=== PATIENT | female | born 1975 | race Caucasian/White ===

== ENCOUNTER 2016-07-24 19:45 | Emergency (ER) | payer SELFPAY ==
[~2016-07-24] VITALS: Ht 149.9 cm; Wt 63.5 kg
[~2016-07-24 19:45] MED LIST: ACET-704 PO; PENI500T PO
[2016-07-24 21:02] VITALS: BP 207/101
[2016-07-24] MEDS ORDERED: IBUPROFEN 800 MG TABLET. PO ONE (22:30)
[2016-07-24] MEDS ORDERED: HYDROCODONE/APAP 5/325MG TABLET. PO ONE (22:30)
[2016-07-24] MEDS ORDERED: IPRATRPIUM/ALBUTEROL 0.5/2.5MG 3 ML NEBU. NEB ONE (22:30)
[2016-07-24] MEDS ORDERED: AMOXICILLIN/K CLAV 875/125MG TABLET. PO ONE (22:30)
[2016-07-24] MEDS ORDERED: PREDNISONE 20 MG TABLET PO ONE (22:30)
[2016-07-24] MEDS ORDERED: PROAIR HFA8.5 GM INH (23:55)
[2016-07-24] MEDS ORDERED: HYDR-971 PO (23:55)
[2016-07-24] MEDS ORDERED: AMOX1TAB61 PO (23:55)
[2016-07-24] MEDS ORDERED: PRED50TA PO (23:55)
--- NOTE | 2016-07-24 23:56 | PHYS DOC ---
Past Medical History Past Medical History: No Pertinent History Additional Past Medical Histor: chronic back pain from fracture, chronic dental issues Past Surgical History: No Surgical History Alcohol Use: Occasionally Drug Use: None Adult General Chief Complaint Chief Complaint: DENTAL PROBLEM HPI HPI Patient is a 41 year old female who presents with cough and toothache. Patient reports over the past 1-2 weeks she has had a productive cough that is getting worse. This is accompanied by nausea, but no vomiting. She also reports she has developed a scratchy throat. No fever. In addition, patient reports she is having worsening of her chronic dental pain. This is in her lower molars on either side; she has had problems with these teeth for 1-2 years. She has not been able to see a dentist as of yet. Has been on antibiotics, most recently penicillin a couple months ago for dental infection. Review of Systems Review of Systems Constitutional: Denies fever or chills Eyes: Denies change in visual acuity or eye pain HENT: Dental pain, scratchy throat. Respiratory: Productive cough. Denies shortness of breath Cardiovascular: Denies chest pain GI: Denies abdominal pain, nausea, vomiting, bloody stools or diarrhea : Denies dysuria or hematuria Musculoskeletal: Denies back pain or joint pain Integument: Denies rash or skin lesions Neurologic: Denies headache, focal weakness or sensory changes Current Medications Current Medications Current Medications Medications (Trade) Dose Ordered Sig/Vivien Start Time Stop Time Status Last Admin Dose Admin Acetaminophen/ Hydrocodone Bitart (Lortab 5/325) 2 tab 1X ONCE 07/24/16 22:30 07/24/16 22:31 DC 07/24/16 22:20 2 TAB Albuterol/ Ipratropium (Duoneb) 3 ml 1X ONCE 07/24/16 22:30 07/24/16 22:31 DC 07/24/16 22:28 3 ML Amoxicillin/ Clavulanate Potassium (Augmentin 875/ 125mg) 1 tab 1X ONCE 07/24/16 22:30 07/24/16 22:31 DC 07/24/16 22:21 1 TAB Ibuprofen (Motrin) 800 mg 1X ONCE 07/24/16 22:30 07/24/16 22:31 DC 07/24/16 22:21 800 MG Prednisone (Prednisone) 60 mg 1X ONCE 07/24/16 22:30 07/24/16 22:31 DC 07/24/16 22:21 60 MG Allergies Allergies Allergies Coded Allergies Type Severity Reaction Last Updated Verified tramadol Allergy 03/29/13 Yes Physical Exam Physical Exam Constitutional: Well developed, well nourished, no acute distress, non-toxic appearance HENT: Normocephalic, atraumatic, bilateral external ears normal. Poor dentition throughout; multiple tooth fractures, including affected molars; no abscess appreciated; oropharynx clear without erythema or exudate Eyes: EOMI, conjunctiva normal, no discharge Neck: Normal range of motion, no stridor Cardiovascular: Heart rate normal, regular rhythm, no murmur Lungs & Thorax: Diffuse expiratory wheezing Abdomen: Bowel sounds normal, soft, non-distended, no TTP Skin: Warm, dry, no erythema, no rash Extremities: No obvious deformity, no edema Neurologic: Alert and oriented X 3, no gross deficits noted Psychologic: Affect normal, judgement normal, mood normal Current Patient Data Vital Signs Vital Signs Date Time Temp Pulse Resp B/P Pulse Ox O2 Delivery O2 Flow Rate FiO2 07/24/16 22:20 Room Air 07/24/16 21:02 98.6 101 20 207/101 98 98.6 Lab Values Laboratory Tests Test 07/24/16 20:46 POC Urine HCG, Qualitative Hcg negative (Negative) EKG EKG [] Radiology/Procedures Radiology/Procedures CXR: IMPRESSION: No acute cardiopulmonary abnormality is detected. Course & Med Decision Making Course & Med Decision Making Pertinent Labs and Imaging studies reviewed. (See chart for details) Patient is 41-year-old female who presents with productive cough and dental pain. No dental abscess noted, will dose with augmentin to cover for odontogenic infection. Wheezing noted on lung auscultation; suspect viral URI with subsequent RAD. CXR ordered. Oral pain meds, dose of steroids, breathing treatments ordered. CXR results as above. Wheezing and symptoms greatly improved after breathing treatment. Discussed importance of follow up with dentistry and PCP. Discharged with rx for pain meds, abx, steroids, albuterol MDI. Given instructions for follow up and return precautions. Dragon Disclaimer Dragon Disclaimer This electronic medical record was generated, in whole or in part, using a voice recognition dictation system. Departure Departure Impression: Primary Impression: Dentalgia Additional Impressions: URI (upper respiratory infection) RAD (reactive airway disease) Disposition: 01 HOME, SELF-CARE Condition: IMPROVED Referrals: NO PCP (PCP) Patient Instructions: Bronchospasm, Adult, Dental Pain, Upper Respiratory Infection, Adult Additional Instructions: Thank you for allowing us to provide care today in the Emergency Department. Take the provided medication as directed. Use caution when taking the pain medication as it can make you drowsy. Schedule a follow up appointment with a primary care doctor using the provided list. Also follow up with a dentist as we discussed. Return promptly to the Emergency Department if you develop any new or concerning symptoms. Scripts Amoxicillin/Potassium Clav (Augmentin 875-125 Tablet)1 Each Tablet1 Tab PO BID # 14 TAB Prov:NAHID LEE MD 07/24/16 Prednisone 50 Mg Tablet1 Tab PO DAILY #4 TAB start taking 07/25/16 Prov:NAHID LEE MD 07/24/16 Albuterol Sulfate (Proair Hfa Inhaler)8.5 Gm [id number].ad1 Puff INH PRN Q6HRS PRN SHORTNESS OF BREATH #1 INHALER Ref 1 Prov:NAHID LEE MD 07/24/16 Hydrocodone/Apap 5-325 ([place]unk 5-325 Tablet)1 Each Tablet1 Tab PO PRN Q6HRS PRN PAIN #20 TAB Prov:NAHID LEE MD 07/24/16 Problem Qualifiers NAHID LEE MD Jul 24, 2016 23:56
--- NOTE | 2016-07-25 07:53 | RAD ---
Chest, 2 views, 07/24/2016: History: Productive cough, wheezing The heart size and pulmonary vascularity are normal. No pulmonary infiltrates are seen. There is no evidence of pleural fluid. Mild spurring is present in the spine. IMPRESSION: No acute cardiopulmonary abnormality is detected.
== END 2016-07-25 00:12 | disposition home or self-care (01) ==
LOC: ER 19:45
DX: J45.909 Unspecified asthma, uncomplicated (principal); J06.9 Acute upper respiratory infection, unspecified; G89.29 Other chronic pain; Z88.6 Allergy status to analgesic agent
CPT/HCPCS: 71020; 84703; 94250; 94640; 99284; J7512; J7620; 81025

== ENCOUNTER 2016-08-18 10:39 | Emergency (ER) | payer SELFPAY ==
[~2016-08-18] VITALS: Ht 149.9 cm; Wt 63.5 kg
[~2016-08-18 10:39] MED LIST changes: +AMOX1TAB61 PO; +HYDR-971 PO; +PRED50TA PO; +PROAIR HFA8.5 GM INH
[2016-08-18 10:53] VITALS: BP 175/85
[2016-08-18] MEDS ORDERED: HYDR-971 PO (11:09)
[2016-08-18] MEDS ORDERED: CLIN-44 PO (11:09)
--- NOTE | 2016-08-18 11:09 | PHYS DOC ---
Past Medical History Past Medical History: Hypertension, Other Additional Past Medical Histor: chronic back pain from fracture, chronic dental issues Past Surgical History: No Surgical History Alcohol Use: Occasionally Drug Use: None Adult General Chief Complaint Chief Complaint: DENTAL PROBLEM HPI HPI Patient is a 41 year old female with history of hypertension who presents today with bilateral lower gum moderate dental pain that began yesterday. Patient denies any fever or trismus. She states she recently completed Augmentin for an upper respiratory infection. Review of Systems Review of Systems Constitutional: Denies fever or chills [] Eyes: Denies change in visual acuity, redness, or eye pain [] HENT: Dental pain Musculoskeletal: Denies back pain or joint pain [] Integument: Denies rash or skin lesions [] Neurologic: Denies headache, focal weakness or sensory changes [] Endocrine: Denies polyuria or polydipsia [] Allergies Allergies Allergies Coded Allergies Type Severity Reaction Last Updated Verified tramadol Allergy 03/29/13 Yes Physical Exam Physical Exam Constitutional: Well developed, well nourished, no acute distress, non-toxic appearance. [] HENT: Normocephalic, atraumatic, bilateral external ears normal, oropharynx moist, no oral exudates, nose normal. [] approx teeth #16 and 30 are decayed. There is a tiny dental abscess on the gum over tooth #30. This no fluctuance to the abscess. Scattered dental caries throughout her teeth in different stages. Eyes: PERRLA, EOMI, conjunctiva normal, no discharge. [] Skin: Warm, dry, no erythema, no rash. [] Back: No tenderness, no CVA tenderness. [] Extremities: No tenderness, no cyanosis, no clubbing, ROM intact, no edema. [] Neurologic: Alert and oriented X 3, normal motor function, normal sensory function, no focal deficits noted. [] Psychologic: Affect normal, judgement normal, mood normal. [] Current Patient Data Vital Signs Vital Signs Date Time Temp Pulse Resp B/P (MAP) Pulse Ox O2 Delivery O2 Flow Rate FiO2 08/18/16 10:53 98.0 101 20 95 Room Air 98.0 EKG EKG [] Radiology/Procedures Radiology/Procedures [] Course & Med Decision Making Course & Med Decision Making Pertinent Labs and Imaging studies reviewed. (See chart for details) Patient is in the ED with a dental abscess that is not ready to be drained as well as infected dental caries. Discharged with clindamycin. She is allergic to Ultram. She was given a prescription for hydrocodone 12 tablets and encouraged to follow-up with a dentist. She was provided return precautions and discharged in stable condition Donna Disclaimer Donna Disclaimer This electronic medical record was generated, in whole or in part, using a voice recognition dictation system. Departure Departure Impression: Primary Impression: Dentalgia Additional Impressions: Dental abscess Infected dental caries Disposition: HOME, SELF-CARE Condition: STABLE Referrals: NO PCP (PCP) Follow-up with the dentist as soon as possible Patient Instructions: Dental Abscess, Dental Caries Additional Instructions: You were seen for dental abscess. We highly recommend you follow-up with the dentist. Take the prescribed medicines as ordered. Ensure you complete your antibiotics. Scripts Clindamycin Hcl (CLINDAMYCIN HCL) 150 Mg Capsule 3 CAP PO TID, #90 CAP Prov: IVET ROSAS APRN 08/18/16 Hydrocodone/Apap 5-325 (NORCO 5-325 TABLET) 1 Each Tablet 1-2 TAB PO Q4-6HRS, #12 TAB Prov: IVET ROSAS APRN 08/18/16 Problem Qualifiers IVET ROSAS APRN August 18, 2016 11:09
== END 2016-08-18 11:17 | disposition home or self-care (01) ==
LOC: ER 10:39
DX: K04.7 Periapical abscess without sinus (principal); K02.9 Dental caries, unspecified; I10 Essential (primary) hypertension; G89.29 Other chronic pain; Z88.6 Allergy status to analgesic agent
CPT/HCPCS: 99283

== ENCOUNTER 2016-11-09 10:44 | Emergency (ER) | payer SELFPAY ==
[~2016-11-09] VITALS: Ht 149.9 cm; Wt 77.1 kg
[~2016-11-09 10:44] MED LIST changes: +CLIN150C14 PO
[2016-11-09 10:55] VITALS: BP 136/73
[2016-11-09] MEDS ORDERED: ONDA4TAB10 SL (11:11)
[2016-11-09] MEDS ORDERED: HYDR-971 PO (11:11)
--- NOTE | 2016-11-09 11:11 | PHYS DOC ---
Past Medical History Past Medical History: Hypertension, Seizure, Other Additional Past Medical Histor: chronic back pain from fracture, chronic dental issues Past Surgical History: No Surgical History Alcohol Use: Occasionally Drug Use: None Adult General Chief Complaint Chief Complaint: DENTAL PROBLEM HPI HPI Patient is a 41 year old female presents emergency department stating that she has been #31 tooth pulled yesterday at [facility] referral from [place]. Patient states that she has vomited twice yesterday she was not provided with any pain medication she did try to take Aleve with no relief. Patient states she was told she had an infection in the area although was not provided any type of antibiotics. Patient denies any fever, chills. She does state that she' s been nauseated. Review of Systems Review of Systems Constitutional: Denies fever or chills [] Eyes: Denies change in visual acuity, redness, or eye pain [] HENT: Denies nasal congestion or sore throat. Dental pain after extraction of tooth Respiratory: Denies cough or shortness of breath [] Cardiovascular: No additional information not addressed in HPI [] GI: Denies abdominal pain, nausea, vomiting, bloody stools or diarrhea [] : Denies dysuria or hematuria [] Musculoskeletal: Denies back pain or joint pain [] Integument: Denies rash or skin lesions [] Neurologic: Denies headache, focal weakness or sensory changes [] Endocrine: Denies polyuria or polydipsia [] Current Medications Current Medications Current Medications Medications (Trade) Dose Ordered Sig/Vivien Start Time Stop Time Status Last Admin Dose Admin Acetaminophen/ Hydrocodone Bitart (Lortab 5/325) 1 tab 1X ONCE 11/09/16 11:15 11/09/16 11:16 UNV Ondansetron HCl (Zofran Odt) 4 mg 1X ONCE 11/09/16 11:15 11/09/16 11:16 UNV Allergies Allergies Allergies Coded Allergies Type Severity Reaction Last Updated Verified tramadol Allergy 03/29/13 Yes Physical Exam Physical Exam Constitutional: Well developed, well nourished, no acute distress, non-toxic appearance. [] HENT: Normocephalic, atraumatic, bilateral external ears normal, oropharynx moist, no oral exudates, nose normal. Bilateral tympanic membranes appear to be normal. Throat with no exudate no erythematous noted. Patient with the #31 tooth that appears to been extracted with no bleeding or discharge noted from the area. Eyes: PERRLA, EOMI, conjunctiva normal, no discharge. [] Neck: Normal range of motion, no tenderness, supple, no stridor. [] Cardiovascular:Heart rate regular rhythm, no murmur [] Lungs & Thorax: Bilateral breath sounds clear to auscultation [] Skin: Warm, dry, no erythema, no rash. [] Back: No tenderness Extremities: No tenderness, no cyanosis, no clubbing, ROM intact, no edema. [] Neurologic: Alert and oriented X 3, normal motor function, normal sensory function, no focal deficits noted. [] Psychologic: Affect normal, judgement normal, mood normal. [] Current Patient Data Vital Signs Vital Signs Date Time Temp Pulse Resp B/P (MAP) Pulse Ox O2 Delivery O2 Flow Rate FiO2 11/09/16 10:55 98.0 90 18 96 Room Air 98.0 EKG EKG [] Radiology/Procedures Radiology/Procedures [] Course & Med Decision Making Course & Med Decision Making Pertinent Labs and Imaging studies reviewed. (See chart for details) Patient will be provided with Zofran here in the emergency department as well as hydrocodone. Patient was instructed that [place] will cause drowsiness do not take if you need to be alert and oriented. She'll be discharged home with Zofran and hydrocodone with recommendations to use Aleve between the times to help with inflammation. Patient agrees with discharge instructions, treatment regimens and follow-up recommendations. Signs and symptoms to return back to emergency department been provided. [] Dragon Disclaimer Dragon Disclaimer This electronic medical record was generated, in whole or in part, using a voice recognition dictation system. Departure Departure Impression: Primary Impression: Pain, dental Disposition: HOME, SELF-CARE Condition: STABLE Referrals: NO PCP (PCP) Patient Instructions: Dental Pain, [id number] Additional Instructions: Activity as tolerated Medication as prescribed [place] will cause drowsiness do not take if you need to be alert and oriented Followup with your dentist no later than Monday Return to emergency department as needed for signs and symptoms that become worse. Scripts Ondansetron (ZOFRAN ODT) 4 Mg Tab.rapdis 1 TAB SL Q8HRS, #10 TAB Prov: ERIN SANTOS DIRECTOR DATABASE 11/09/16 Hydrocodone/Apap 5-325 (NORCO 5-325 TABLET) 1 Each Tablet 1 TAB PO PRN Q6HRS Y for PAIN, #15 TAB 0 Refills Prov: ERIN SANTOS APRN 11/09/16 ERIN SANTOS APRN Nov 09, 2016 11:11
[2016-11-09] MEDS ORDERED: AMOX500C PO (11:19)
[2016-11-09] MEDS ORDERED: ONDANSETRON ODT 4 MG TAB.RAPDIS. PO ONE (11:30)
[2016-11-09] MEDS ORDERED: HYDROcodone/APAP 5/325MG 1 TAB TABLET PO ONE (11:30)
== END 2016-11-09 11:25 | disposition home or self-care (01) ==
LOC: ER 10:44
DX: K08.89 Other specified disorders of teeth and supporting structures (principal); R11.2 Nausea with vomiting, unspecified; I10 Essential (primary) hypertension; G89.29 Other chronic pain; K08.409 Partial loss of teeth, unspecified cause, unspecified class; Z88.5 Allergy status to narcotic agent
CPT/HCPCS: 99283; Q0162

== ENCOUNTER 2017-02-27 11:54 | Emergency (ER) | payer SELFPAY ==
[~2017-02-27] VITALS: Ht 149.9 cm; Wt 72.6 kg
[~2017-02-27 11:54] MED LIST changes: +AMOX500C PO; +ONDA4TAB10 SL
[2017-02-27 13:09] LABS: BASO % 0 % (0-3); EOS % 3 % (0-3); HEMATOCRIT 41.9 % (36.0-47.0); HEMOGLOBIN 13.9 g/dL (12.0-15.5); LYMPH # 1.4 x10^3/uL (1.0-4.8); LYMPH % 16 % (24-48); MEAN CORPUSCULAR HEMOGLOBIN 33 pg (25-35); MEAN CORPUSCULAR HGB CONC 33 g/dL (31-37); MEAN CORPUSCULAR VOLUME 99 fL (79-100); MONO % 7 % (0-9); NEUT % 74 % (31-73); PLATELET COUNT 250 x10^3/uL (140-400); RED BLOOD COUNT 4.24 x10^6/uL (3.50-5.40); RED CELL DISTRIBUTION WIDTH 14.9 % (11.5-14.5); WHITE BLOOD COUNT 8.5 x10^3/uL (4.0-11.0)
[2017-02-27 13:12] LABS: BILIRUBIN,URINE NEGATIVE (NEG); GLUCOSE,URINE NEGATIVE (NEG); NITRITE,URINE NEGATIVE (NEG); PH,URINE 7.5; PROTEIN,URINE NEGATIVE (NEG-TRACE); UROBILINOGEN,URINE 0.2 mg/dL (0.2 mg/dL)
[2017-02-27 13:21] LABS: BACTERIA,URINE MOD /HPF (0-FEW); SQUAMOUS EPITHELIAL CELL,UR MOD /LPF
--- NOTE | 2017-02-27 13:26 | PHYS DOC ---
Past Medical History Past Medical History: Anxiety, Hypertension, Seizure, Other Additional Past Medical Histor: chronic back pain from fracture, chronic dental issues Past Surgical History: No Surgical History Alcohol Use: Heavy Additional Information: PINT OF WISKEY DAILY Drug Use: None Adult General Chief Complaint Chief Complaint: lightheaded HPI HPI Patient is a 41 year old [place] who presents with symptoms of feeling lightheaded today, anytime she gets up or moves around. Patient has known history of hypertension has been out of her medications for 2 weeks. She then attempted to take someone else's medication. She denies any headache, blurry vision, no focal weakness. She did have nausea and vomiting 2 days ago, she's had some mild dysuria, mild cough, intermittent twinges of left-sided chest pain. No radiation of pain. Nothing makes the pain better or worse. Patient has not actively follow with primary care physician, she was found to have hypertension after she went to have all of her teeth pulled on the dentist told her that her blood pressure is elevated. Review of Systems Review of Systems Constitutional: Denies fever or chills [] Eyes: Denies change in visual acuity, redness, or eye pain [] HENT: Denies nasal congestion or sore throat [] Respiratory: Reports mild cough denies shortness of breath [] Cardiovascular: No additional information not addressed in HPI [] GI: Denies nausea, vomiting, bloody stools or diarrhea [] : Denies dysuria or hematuria [] Musculoskeletal: Denies back pain or joint pain [] Integument: Denies rash or skin lesions [] Neurologic: Denies headache, focal weakness or sensory changes [] All other systems were reviewed and found to be within normal limits, except as documented in this note. Current Medications Current Medications Current Medications Medications (Trade) Dose Ordered Sig/Vivien Start Time Stop Time Status Last Admin Dose Admin Hydrochlorothiazide (Hydrodiuril) 25 mg 1X ONCE 02/27/17 13:30 02/27/17 13:31 DC 02/27/17 14:01 25 MG Ketorolac Tromethamine (Toradol) 30 mg 1X ONCE 02/27/17 15:00 02/27/17 15:01 Lisinopril (Prinivil) 5 mg 1X ONCE 02/27/17 13:30 02/27/17 13:31 DC 02/27/17 14:02 5 MG Sodium Chloride 500 ml @ 500 mls/hr 1X ONCE 02/27/17 13:30 02/27/17 14:29 DC 02/27/17 14:03 500 MLS/HR Allergies Allergies Allergies Coded Allergies Type Severity Reaction Last Updated Verified tramadol Allergy 03/29/13 Yes Physical Exam Physical Exam Constitutional: Well developed, well nourished, no acute distress, non-toxic appearance. Obese, smells heavily of smoke HENT: Normocephalic, atraumatic, bilateral external ears normal, oropharynx moist, no oral exudates, nose normal. [] Eyes: PERRLA, EOMI, conjunctiva normal, no discharge. [] Neck: Normal range of motion, no tenderness, supple, no stridor. [] Cardiovascular:Heart rate regular 90 bpm with regular rhythm, no murmur [] Lungs & Thorax: Bilateral breath sounds clear to auscultation no wheeze or crackles Abdomen: soft, no tenderness, no masses, no pulsatile masses. [] Skin: Warm, dry, no erythema, no rash. [] Back: No tenderness, no CVA tenderness. [] Extremities: No tenderness, no cyanosis, no clubbing, ROM intact, no edema. [] Neurologic: Alert and oriented X 3, normal motor function, normal sensory function, no focal deficits noted. Cranial nerves II through XII intact Psychologic: Affect normal, judgement normal, mood normal. [] Current Patient Data Vital Signs Vital Signs Date Time Temp Pulse Resp B/P (MAP) Pulse Ox O2 Delivery O2 Flow Rate FiO2 02/27/17 14:02 88 185/86 02/27/17 14:01 22 96 02/27/17 12:00 97.4 Room Air 97.4 Lab Values Laboratory Tests Test 02/27/17 12:20 02/27/17 13:00 02/27/17 13:02 White Blood Count 8.5 x10^3/uL (4.0-11.0) Red Blood Count 4.24 x10^6/uL (3.50-5.40) Hemoglobin 13.9 g/dL (12.0-15.5) Hematocrit 41.9 % (36.0-47.0) Mean Corpuscular Volume 99 fL (79-100) Mean Corpuscular Hemoglobin 33 pg (25-35) Mean Corpuscular Hemoglobin Concent 33 g/dL (31-37) Red Cell Distribution Width 14.9 % (11.5-14.5) H Platelet Count 250 x10^3/uL (140-400) Neutrophils (%) (Auto) 74 % (31-73) H Lymphocytes (%) (Auto) 16 % (24-48) L Monocytes (%) (Auto) 7 % (0-9) Eosinophils (%) (Auto) 3 % (0-3) Basophils (%) (Auto) 0 % (0-3) Neutrophils # (Auto) 6.3 x10^3uL (1.8-7.7) Lymphocytes # (Auto) 1.4 x10^3/uL (1.0-4.8) Monocytes # (Auto) 0.6 x10^3/uL (0.0-1.1) Eosinophils # (Auto) 0.2 x10^3/uL (0.0-0.7) Basophils # (Auto) 0.0 x10^3/uL (0.0-0.2) D-Dimer (Gavi) 0.40 ug/mlFEU (0.00-0.50) Sodium Level 135 mmol/L (136-145) L Potassium Level 4.2 mmol/L (3.5-5.1) Chloride Level 101 mmol/L (98-107) Carbon Dioxide Level 28 mmol/L (21-32) Anion Gap 6 (6-14) Blood Urea Nitrogen 14 mg/dL (7-20) Creatinine 1.0 mg/dL (0.6-1.0) Estimated GFR (Cockcroft-Gault) 61.7 BUN/Creatinine Ratio 14 (6-20) Glucose Level 115 mg/dL (70-99) H Calcium Level 9.2 mg/dL (8.5-10.1) Total Bilirubin 0.2 mg/dL (0.2-1.0) Aspartate Amino Transferase (AST) 31 U/L (15-37) Alanine Aminotransferase (ALT) 52 U/L (14-59) Alkaline Phosphatase 119 U/L (46-116) H Troponin I Quantitative < 0.017 ng/mL (0.000-0.055) Total Protein 7.2 g/dL (6.4-8.2) Albumin 3.7 g/dL (3.4-5.0) Albumin/Globulin Ratio 1.1 (1.0-1.7) Urine Collection Type Void Urine Color Yellow Urine Clarity Clear Urine pH 7.5 Urine Specific Malone <=1.005 Urine Protein Negative mg/dL (NEG-TRACE) Urine Glucose (UA) Negative mg/dL (NEG) Urine Ketones (Stick) Negative mg/dL (NEG) Urine Blood Moderate (NEG) Urine Nitrite Negative (NEG) Urine Bilirubin Negative (NEG) Urine Urobilinogen Dipstick 0.2 mg/dL (0.2 mg/dL) Urine Leukocyte Esterase Negative (NEG) Urine RBC 6-10 /HPF (0-2) Urine WBC 1-4 /HPF (0-4) Urine Squamous Epithelial Cells Mod /LPF Urine Bacteria Mod /HPF (0-FEW) POC Urine HCG, Qualitative Hcg negative (Negative) Laboratory Tests 02/27/17 12:20 Laboratory Tests 02/27/17 12:20 EKG EKG 105 bpm, sinus tach, normal axis, normal intervals, no ST elevation or depression, nonischemic T waves, interpreted by va General Claims Agent shows 99 bpm, sinus, no arrhythmia appreciated, interpreted by va Continuous pulse ox shows 98% on room air with good waveform, interpreted by va Radiology/Procedures Radiology/Procedures ct HEAD: Impression: No acute intracranial process is detected. cxr: IMPRESSION: No acute abnormality detected. Course & Med Decision Making Course & Med Decision Making Pertinent Labs and Imaging studies reviewed. (See chart for details) Patient has a normal exam, reassuring EKG, chest x-ray, CT head and lab work. She received 500 mils normal saline bolus, her normal lisinopril and hydrochlorothiazide doses of hypertension medication. Counseled patient on the need to closely follow up with primary care physician for her blood pressure, use caution the next few days and drink plenty of fluids to ensure symptoms are well controlled. orthostatics performed, no abnormalities counseled patient on the need to stop smoking as its dangerous her health referred to [facility], refilled HCTZ and lisinopril. RX for ibuprofen, flexeril. Dragon Disclaimer Dragon Disclaimer This electronic medical record was generated, in whole or in part, using a voice recognition dictation system. Departure Departure Impression: Primary Impression: Hypertension Disposition: 01 HOME, SELF-CARE Condition: IMPROVED Referrals: NO PCP (PCP) Scripts Hydrochlorothiazide (HYDROCHLOROTHIAZIDE TABLET ) 25 Mg Tablet 1 TAB PO DAILY, #30 TAB 0 Refills Prov: MARNI FERNANDEZ MD 02/27/17 Lisinopril (LISINOPRIL) 5 Mg Tablet 1 TAB PO DAILY, #30 TAB 0 Refills Prov: MARNI FERNANDEZ MD 02/27/17 Ibuprofen (IBUPROFEN) 600 Mg Tablet 600 MG PO PRN Q6HRS Y for PAIN, #20 TAB take with food or milk Prov: MARNI FERNANDEZ MD 02/27/17 Cyclobenzaprine Hcl (CYCLOBENZAPRINE HCL) 5 Mg Tablet 5 MG PO PRN TID Y for MUSCLE SPASMS, #15 TAB Prov: MARNI FERNANDEZ MD 02/27/17 MARNI FERNANDEZ MD Feb 27, 2017 13:26
--- NOTE | 2017-02-27 13:26 | EKG ---
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
[2017-02-27] MEDS ORDERED: LISINOPRIL 5 MG TABLET. PO ONE (13:30)
[2017-02-27] MEDS ORDERED: hydroCHLOROthiazide 25 MG TABLET PO ONE (13:30)
[2017-02-27] MEDS ORDERED: IV NORMAL SALINE 500ML BAG 500 ML IV ONE (13:30)
[2017-02-27 13:37] LABS: CALCIUM 9.2 mg/dL (8.5-10.1); GFR 61.7; POTASSIUM 4.2 mmol/L (3.5-5.1)
[2017-02-27 13:41] LABS: ALBUMIN 3.7 g/dL (3.4-5.0); ALBUMIN/GLOBULIN RATIO 1.1 (1.0-1.7); TOTAL BILIRUBIN 0.2 mg/dL (0.2-1.0); TOTAL PROTEIN 7.2 g/dL (6.4-8.2)
--- NOTE | 2017-02-27 13:47 | RAD ---
Indication: Chest pain and cough. Time of exam 1336 hours. Correlation is made with prior study from 07/29/2016. FINDINGS: The heart size is normal. The lungs are clear. No pleural effusion or pneumothorax is identified. The pulmonary vascularity is normal. IMPRESSION: No acute abnormality detected.
--- NOTE | 2017-02-27 13:59 | RAD ---
Indication: Dizziness and hypertension. Axial imaging through the brain was performed without contrast. Correlation is made with prior head CT from 07/29/2016. The ventricles and sulci are within normal limits. No sulcal effacement, midline shift or hemorrhage is detected. Cisterns are patent. The visualized paranasal sinuses are clear. Impression: No acute intracranial process is detected. PQRS Compliance Statement: One or more of the following individualized dose reduction techniques were utilized for this examination: 1. Automated exposure control 2. Adjustment of the mA and/or kV according to patient size 3. Use of iterative reconstruction technique
[2017-02-27] MEDS ORDERED: IBUP-1007 PO (14:54)
[2017-02-27] MEDS ORDERED: HYDR25TA9 PO (14:54)
[2017-02-27] MEDS ORDERED: CYCL5TAB PO (14:54)
[2017-02-27] MEDS ORDERED: LISI-338 PO (14:54)
[2017-02-27] MEDS ORDERED: KETOROLAC 30 MG/ML INJ. IV ONE (15:00)
[2017-02-27 15:01] VITALS: BP 155/76
== END 2017-02-27 15:24 | disposition home or self-care (01) ==
LOC: ER 11:54
DX: I10 Essential (primary) hypertension (principal); R42 Dizziness and giddiness; G89.29 Other chronic pain; R11.2 Nausea with vomiting, unspecified; F10.10 Alcohol abuse, uncomplicated; Z88.6 Allergy status to analgesic agent
CPT/HCPCS: 36415; 70450; 71020; 80053; 81001; 81025; 84484; 85025; 85379; 93005; 96361; 96374; 99285; J1885; J7040

== ENCOUNTER 2017-07-30 01:04 | Emergency (ER) | payer SELFPAY ==
[2017-07-30 01:58] LABS: URINE HCG POC HCG NEGATIVE (Negative)
[2017-07-30 02:15] LABS: BILIRUBIN,URINE NEGATIVE (NEG); CLARITY,URINE CLEAR; COLOR,URINE YELLOW; GLUCOSE,URINE NEGATIVE (NEG); NITRITE,URINE NEGATIVE (NEG); PROTEIN,URINE NEGATIVE (NEG-TRACE); UROBILINOGEN,URINE 0.2 mg/dL (0.2 mg/dL)
[2017-07-30 02:43] LABS: BACTERIA,URINE 0 /HPF (0-FEW); RBC,URINE OCC /HPF (0-2); SQUAMOUS EPITHELIAL CELL,UR MOD /LPF; WBC,URINE OCC /HPF (0-4)
[2017-07-30 02:50] LABS: ADD MAN DIFF? NO
[2017-07-30 02:54] LABS: BASO % 1 % (0-3); EOS # 0.3 x10^3/uL (0.0-0.7); EOS % 3 % (0-3); HEMATOCRIT 41.1 % (36.0-47.0); LYMPH # 1.8 x10^3/uL (1.0-4.8); LYMPH % 19 % (24-48); MEAN CORPUSCULAR HEMOGLOBIN 33 pg (25-35); MEAN CORPUSCULAR HGB CONC 34 g/dL (31-37); MEAN CORPUSCULAR VOLUME 96 fL (79-100); MONO # 0.9 x10^3/uL (0.0-1.1); MONO % 9 % (0-9); NEUT # 6.5 x10^3uL (1.8-7.7); NEUT % 68 % (31-73); PLATELET COUNT 252 x10^3/uL (140-400); RED BLOOD COUNT 4.29 x10^6/uL (3.50-5.40); RED CELL DISTRIBUTION WIDTH 14.2 % (11.5-14.5); WHITE BLOOD COUNT 9.5 x10^3/uL (4.0-11.0)
[2017-07-30 03:14] LABS: ANION GAP 13 (6-14); BLOOD UREA NITROGEN 18 mg/dL (7-20); BUN/CREATININE RATIO 23 (6-20); CALCIUM 9.4 mg/dL (8.5-10.1); CARBON DIOXIDE 25 mmol/L (21-32); CHLORIDE 98 mmol/L (98-107); CREATININE 0.8 mg/dL (0.6-1.0); GFR 79.4; GLUCOSE 148 mg/dL (70-99); POTASSIUM 3.9 mmol/L (3.5-5.1); SODIUM 136 mmol/L (136-145)
[2017-07-30 03:19] LABS: ALBUMIN 3.8 g/dL (3.4-5.0); ALK PHOS 132 U/L (46-116); ALT (SGPT) 53 U/L (14-59); AST (SGOT) 32 U/L (15-37); TOTAL BILIRUBIN 0.3 mg/dL (0.2-1.0); TOTAL PROTEIN 7.5 g/dL (6.4-8.2)
[2017-07-30 03:32] LABS: TROPONINI < 0.017 ng/mL (0.000-0.055)
== END 2017-07-30 04:19 | disposition home or self-care (01) ==
LOC: ER 01:04
DX: R53.83 Other fatigue (principal); F17.200 Nicotine dependence, unspecified, uncomplicated; F41.9 Anxiety disorder, unspecified; I10 Essential (primary) hypertension; G89.29 Other chronic pain; F10.10 Alcohol abuse, uncomplicated
CPT/HCPCS: 36415; 71046; 80053; 81001; 81025; 84484; 85025; 93005; 99285-25

== ENCOUNTER 2018-03-02 04:43 | Emergency (ER) | payer SELFPAY ==
[~2018-03-02] VITALS: Ht 149.9 cm; Wt 90.7 kg
[~2018-03-02 04:43] MED LIST changes: +CYCL5TAB PO; +HYDR-3164 PO; -HYDR-971 PO; +HYDR25TA9 PO; +IBUP-1007 PO; +LISI-338 PO
--- NOTE | 2018-03-02 05:08 | PHYS DOC ---
Past Medical History Past Medical History: Anxiety, Hypertension, Seizure, Other Additional Past Medical Histor: chronic back pain from fracture, chronic dental issues Past Surgical History: No Surgical History Smoking: Cigarettes Alcohol Use: Heavy Drug Use: None Adult General Chief Complaint Chief Complaint: NAUSEA/VOMITING/DIARRHA HPI HPI 42-year-old female presents with report of one day history of nausea, vomiting, and diarrhea. Patient does report subjective fever/chills. Denies known sick contacts. Denies known exposure. Patient denies taking any medication this morning to help with fever. Patient associated reports diffuse cramping abdominal pain. Denies . Review of Systems Review of Systems Constitutional: Reports subjective fever and chills [] Eyes: Denies change in visual acuity, redness, or eye pain [] HENT: Denies nasal congestion or sore throat [] Respiratory: Denies cough or shortness of breath [] Cardiovascular: Denies chest pain or palpitations GI: Reports abdominal pain, nausea, vomiting, and diarrhea [] : Denies dysuria or hematuria [] Musculoskeletal: Denies back pain or joint pain [] Integument: Denies rash or skin lesions [] Neurologic: Denies headache, focal weakness or sensory changes [] Complete systems were reviewed and found to be within normal limits, except as documented in this note. Current Medications Current Medications Current Medications Medications (Trade) Dose Ordered Sig/Vivien Start Time Stop Time Status Last Admin Dose Admin Acetaminophen (Tylenol) 500 mg 1X ONCE 03/02/18 05:30 03/02/18 05:31 DC 03/02/18 05:47 500 MG Famotidine (Pepcid Vial) 20 mg 1X ONCE 03/02/18 05:30 03/02/18 05:31 DC 03/02/18 05:47 20 MG Info (CONTRAST GIVEN -- Rx MONITORING) 1 each PRN DAILY PRN 03/02/18 06:15 03/04/18 06:14 Iohexol (Omnipaque 300 Mg/ml) 60 ml 1X ONCE 03/02/18 06:30 03/02/18 06:31 DC 03/02/18 06:21 60 ML Ketorolac Tromethamine (Toradol 15mg Vial) 15 mg 1X ONCE 03/02/18 05:30 03/02/18 05:31 DC 03/02/18 05:47 15 MG Ondansetron HCl (Zofran) 4 mg 1X ONCE 03/02/18 05:30 03/02/18 05:31 DC 03/02/18 05:47 4 MG Sodium Chloride 1,000 ml @ 1,000 mls/hr 1X ONCE 03/02/18 05:30 03/02/18 06:29 DC 03/02/18 05:46 1,000 MLS/HR Allergies Allergies Allergies Coded Allergies Type Severity Reaction Last Updated Verified tramadol Allergy Intermediate 03/02/18 Yes Physical Exam Physical Exam Constitutional: Well developed, well nourished, no acute distress, non-toxic appearance. [] HENT: Normocephalic, atraumatic, bilateral external ears normal, oropharynx moist, no oral exudates, nose normal. [] Eyes: PERRL, EOMI, conjunctiva normal, no discharge. [] Neck: Normal range of motion, no tenderness, supple, no meningeal signs Cardiovascular: Heart rate regular rhythm, no murmur [] Lungs & Thorax: Bilateral breath sounds clear to auscultation [] Abdomen: Soft, mild diffuse tenderness Skin: Warm, dry, no erythema, no rash. [] Back: No tenderness, no CVA tenderness. [] Extremities: No tenderness, ROM intact, no edema. [] Neurologic: Alert and oriented X 3, normal motor function, normal sensory function, no focal deficits noted. [] Psychologic: Affect normal, judgement normal, mood normal. [] Current Patient Data Vital Signs Vital Signs Date Time Temp Pulse Resp B/P (MAP) Pulse Ox O2 Delivery O2 Flow Rate FiO2 03/02/18 06:47 99.7 100 16 116/53 (74) 96 Room Air 99.7 Lab Values Laboratory Tests Test 03/02/18 05:16 03/02/18 05:28 03/02/18 05:34 Urine Collection Type Void Urine Color Yellow Urine Clarity Clear Urine pH 7.5 Urine Specific Rowe 1.020 Urine Protein Negative mg/dL (NEG-TRACE) Urine Glucose (UA) Negative mg/dL (NEG) Urine Ketones (Stick) Negative mg/dL (NEG) Urine Blood Small (NEG) Urine Nitrite Negative (NEG) Urine Bilirubin Negative (NEG) Urine Urobilinogen Dipstick 0.2 mg/dL (0.2 mg/dL) Urine Leukocyte Esterase Negative (NEG) Urine RBC 6-10 /HPF (0-2) Urine WBC Occ /HPF (0-4) Urine Squamous Epithelial Cells Many /LPF Urine Bacteria Few /HPF (0-FEW) Urine Mucus Mod /LPF White Blood Count 10.7 x10^3/uL (4.0-11.0) Red Blood Count 4.47 x10^6/uL (3.50-5.40) Hemoglobin 14.5 g/dL (12.0-15.5) Hematocrit 42.4 % (36.0-47.0) Mean Corpuscular Volume 95 fL (79-100) Mean Corpuscular Hemoglobin 32 pg (25-35) Mean Corpuscular Hemoglobin Concent 34 g/dL (31-37) Red Cell Distribution Width 14.6 % (11.5-14.5) H Platelet Count 215 x10^3/uL (140-400) Neutrophils (%) (Auto) 89 % (31-73) H Lymphocytes (%) (Auto) 5 % (24-48) L Monocytes (%) (Auto) 6 % (0-9) Eosinophils (%) (Auto) 0 % (0-3) Basophils (%) (Auto) 0 % (0-3) Neutrophils # (Auto) 9.5 x10^3uL (1.8-7.7) H Lymphocytes # (Auto) 0.5 x10^3/uL (1.0-4.8) L Monocytes # (Auto) 0.6 x10^3/uL (0.0-1.1) Eosinophils # (Auto) 0.0 x10^3/uL (0.0-0.7) Basophils # (Auto) 0.0 x10^3/uL (0.0-0.2) Platelet Estimate Pending Sodium Level 135 mmol/L (136-145) L Potassium Level 3.4 mmol/L (3.5-5.1) L Chloride Level 97 mmol/L (98-107) L Carbon Dioxide Level 28 mmol/L (21-32) Anion Gap 10 (6-14) Blood Urea Nitrogen 11 mg/dL (7-20) Creatinine 1.1 mg/dL (0.6-1.0) H Estimated GFR (Cockcroft-Gault) 55.0 BUN/Creatinine Ratio 10 (6-20) Glucose Level 115 mg/dL (70-99) H Lactic Acid Level 1.9 mmol/L (0.4-2.0) Calcium Level 9.4 mg/dL (8.5-10.1) Magnesium Level 1.9 mg/dL (1.8-2.4) Total Bilirubin 0.4 mg/dL (0.2-1.0) Aspartate Amino Transferase (AST) 20 U/L (15-37) Alanine Aminotransferase (ALT) 50 U/L (14-59) Alkaline Phosphatase 115 U/L (46-116) Total Protein 8.1 g/dL (6.4-8.2) Albumin 3.7 g/dL (3.4-5.0) Albumin/Globulin Ratio 0.8 (1.0-1.7) L Lipase 99 U/L (73-393) POC Urine HCG, Qualitative Hcg negative (Negative) Laboratory Tests 03/02/18 05:28 Laboratory Tests 03/02/18 05:28 EKG EKG [] Radiology/Procedures Radiology/Procedures [] Course & Med Decision Making Course & Med Decision Making Pertinent Labs and Imaging studies reviewed. (See chart for details) Patient presents with report of subjective fever/chills with associated nausea, vomiting, and diarrhea. Denies travel outside the [place]. Denies known sick contacts or exposures. Symptomatic treatment provided. Fever addressed. Labs obtained pending. CT abd/pelvis also pending. Sign out given to Dr. King for further evaluation and final disposition. Discussed current findings and plan with patient and family, who acknowledge understanding and agreement. Dragon Disclaimer Dragon Disclaimer This electronic medical record was generated, in whole or in part, using a voice recognition dictation system. Departure Departure Impression: Primary Impression: Nausea vomiting and diarrhea Additional Impression: Fever Referrals: NO PCP (PCP) Assessment/Plan Assessment/Plan 42-year-old female presenting to the emergency department with abdominal pain nausea vomiting and diarrhea. Patient was signed out to me at 6 AM with plans to follow-up on labs and CT. I would evaluate the patient and examined her abdomen. She has a soft nontender abdomen. Negative McBurney's point. Negative Stallworth sign. Her abdomen is also nondistended. She's reports feeling better on my examination. Blood work shows normal CBC. Chemistry shows mildly low sodium and mildly low potassium likely secondary to hypovolemic dehydration. Patient did receive a liter of normal saline here in the ER. Otherwise lactic acid is within normal limits. Urinalysis is negative for infection. Negative leuk esterase. Negative nitrites. CT the abdomen pelvis shows terminal ileitis as well as possible colitis suspicious for infectious versus inflammatory etiology. No abscess. I communicated the findings to the patient. We will give the patient oral symptomatic treatment to follow up with her doctor in 1-2 days. She will likely need a GI referral if her symptoms continue. She does report that she has one relative with inflammatory bowel disease. The patient has been examined and was not found to have an emergency medical condition. The patient was then discharged home in stable condition to follow up with their primary care physician over the next 1-2 days. They were to return if their symptoms worsened or if they were concerned for any reason. They were also instructed to return to the emergency department if they were unable to get the recommended and appropriate follow-up. Elit-ab-njsk discharge instructions and return precautions were given. Patient's questions were answered to their satisfaction. Patient is comfortable with plan. Problem Qualifiers Additional Impression: Fever Fever type: unspecified Qualified Codes: R50.9 - Fever, unspecified KOKI NDIAYE DO Mar 02, 2018 05:08 BRANDIE KING MD Mar 02, 2018 07:31
[2018-03-02] MEDS ORDERED: KETOROLAC 15 MG/ML VIAL. IV ONE (05:30)
[2018-03-02] MEDS ORDERED: ACETAMINOPHEN 500 MG TABLET PO ONE (05:30)
[2018-03-02] MEDS ORDERED: ONDANSETRON PF 4 MG/2 ML VIAL. IV ONE (05:30)
[2018-03-02] MEDS ORDERED: FAMOTIDINE 20 MG/2 ML VIAL IVP ONE (05:30)
[2018-03-02] MEDS ORDERED: IV NORMAL SALINE 1000ML BAG 1,000 ML IV ONE (05:30)
[2018-03-02 05:51] LABS: BASO % 0 % (0-3); EOS % 0 % (0-3); HEMATOCRIT 42.4 % (36.0-47.0); HEMOGLOBIN 14.5 g/dL (12.0-15.5); LYMPH # 0.5 x10^3/uL (1.0-4.8); LYMPH % 5 % (24-48); MEAN CORPUSCULAR HEMOGLOBIN 32 pg (25-35); MEAN CORPUSCULAR HGB CONC 34 g/dL (31-37); MEAN CORPUSCULAR VOLUME 95 fL (79-100); MONO # 0.6 x10^3/uL (0.0-1.1); MONO % 6 % (0-9); NEUT # 9.5 x10^3uL (1.8-7.7); NEUT % 89 % (31-73); PLATELET COUNT 215 x10^3/uL (140-400); RED BLOOD COUNT 4.47 x10^6/uL (3.50-5.40); RED CELL DISTRIBUTION WIDTH 14.6 % (11.5-14.5); WHITE BLOOD COUNT 10.7 x10^3/uL (4.0-11.0)
[2018-03-02 05:53] LABS: BILIRUBIN,URINE NEGATIVE (NEG); CLARITY,URINE CLEAR; COLOR,URINE YELLOW; NITRITE,URINE NEGATIVE (NEG); PH,URINE 7.5; PROTEIN,URINE NEGATIVE (NEG-TRACE); UROBILINOGEN,URINE 0.2 mg/dL (0.2 mg/dL)
[2018-03-02 06:04] LABS: SQUAMOUS EPITHELIAL CELL,UR MANY /LPF
[2018-03-02 06:05] LABS: BACTERIA,URINE FEW /HPF (0-FEW); WBC,URINE OCC /HPF (0-4)
[2018-03-02 06:07] LABS: CALCIUM 9.4 mg/dL (8.5-10.1); CREATININE 1.1 mg/dL (0.6-1.0); POTASSIUM 3.4 mmol/L (3.5-5.1)
[2018-03-02] MEDS ORDERED: CONTRAST GIVEN. MC PRN (06:15)
[2018-03-02 06:20] LABS: ALBUMIN 3.7 g/dL (3.4-5.0); ALBUMIN/GLOBULIN RATIO 0.8 (1.0-1.7); MAGNESIUM 1.9 mg/dL (1.8-2.4); TOTAL BILIRUBIN 0.4 mg/dL (0.2-1.0); TOTAL PROTEIN 8.1 g/dL (6.4-8.2)
[2018-03-02] MEDS ORDERED: IOHEXOL 300 MG/ML 100ML VIAL. IV ONE (06:30)
--- NOTE | 2018-03-02 06:36 | RAD ---
PQRS Compliance Statement: One or more of the following individualized dose reduction techniques were utilized for this examination: 1. Automated exposure control 2. Adjustment of the mA and/or kV according to patient size 3. Use of iterative reconstruction technique CT abdomen/pelvis with contrast 03/02/2018 6:15 AM INDICATION: Nausea, vomiting and diarrhea. COMPARISON: None available TECHNIQUE: Multiple axial CT images of the abdomen and pelvis were obtained after the intravenous administration of 60 mL Omnipaque 300. Coronal and sagittal reformats are provided. FINDINGS: Visualized portions of the lung bases are clear. Heart size is within normal limits. No suspicious hepatic masses are identified. Liver is homogeneous in enhancement. Spleen, bilateral adrenal glands, and pancreas are normal in appearance. Gallbladder is present without adjacent inflammatory changes. The abdominal aorta is normal in course and caliber. There are no pathologically enlarged lymph nodes in the abdomen and pelvis. There is no abdominal free fluid. There is no free intraperitoneal air. The kidneys enhance symmetrically. There is no suspicious renal mass. There is no hydronephrosis. There are no suspected calculi within the kidneys, ureters or urinary bladder. There is circumferential wall thickening with adjacent inflammation involving the terminal ileum. A normal appendix is suspected. Mild wall thickening is identified involving the right colon which may be secondary to underdistention. Urinary bladder is within normal limits given degree of distention. Uterus and adnexa appear normal by CT. No suspicious osseous amount is identified. 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 IMPRESSION: 1. Findings are most suggestive of a terminal ileitis as well as possible colitis involving the right colon. A normal appendix is suspected. Findings may be of infectious/inflammatory etiology (inflammatory bowel disease). No abscess or pneumoperitoneum. 2. 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 Electronically signed by: Elham Solo MD (03/02/2018 6:33 AM) [facility]
[2018-03-02] MEDS ORDERED: ONDA4TAB7 PO (07:36)
[2018-03-02 07:44] LABS: FECAL OB PT POSITIVE (NEG)
[2018-03-02 07:45] VITALS: BP 100/51
[2018-03-02 10:24] LABS: % BANDS 27 % (0-9); % LYMPHS 6 % (24-48); % MONOS 5 % (0-10); % SEGS 62 % (35-66)
[2018-03-02 10:25] LABS: PLT ESTIMATE ADEQUATE (ADEQUATE)
[2018-03-02 10:26] LABS: POLYCHROMASIA SLIGHT
--- NOTE | 2018-03-05 12:41 | VNOTE ---
CALL BACK NOTE CALL BACK Microbiology 03/02/18 Stool Culture - Final, Resulted 03/02/18 Stool Culture Result 1 (MAYNOR) - Final, Resulted 03/02/18 Campylobacter Antigen Assay - Final, Resulted 03/02/18 Campylobactor Result 1 - Final, Resulted 03/02/18 Shiga Toxin Test, Resulted Pending 03/05/18 The patient was still experiencing diarrhea. Zithromax was called into the [facility], detailed instructions were given on how to take the medication. The patient is in agreement with this plan. [facility] [place] ADDENDUM: I have reviewed the PA/HVAC SALES REPRESENTATIVE's note and plan of care. I was available for consultation as needed during the patient's visit in the emergency department. I agree with the clinical impression, plan, and disposition. LUH GAVIN APRN Mar 05, 2018 12:41 KOKI NDIAYE DO Mar 05, 2018 14:22
== END 2018-03-02 08:15 | disposition home or self-care (01) ==
LOC: ER 04:43
DX: R11.2 Nausea with vomiting, unspecified (principal); R19.7 Diarrhea, unspecified; R50.9 Fever, unspecified; R10.84 Generalized abdominal pain; F41.9 Anxiety disorder, unspecified; I10 Essential (primary) hypertension; G89.29 Other chronic pain; F17.210 Nicotine dependence, cigarettes, uncomplicated; F10.20 Alcohol dependence, uncomplicated; Y90.9 Presence of alcohol in blood, level not specified; Z88.5 Allergy status to narcotic agent
CPT/HCPCS: 36415; 74177; 80053; 81001; 81025; 82274; 83605; 83690; 83735; 85007; 85025; 87045; 87328; 96361; 96374; 96375; 99284; J1885; J2405; J3490; J7030; Q9967

== ENCOUNTER 2018-05-17 18:09 | Emergency (ER) | payer SELFPAY ==
[~2018-05-17] VITALS: Ht 149.9 cm; Wt 90.7 kg
[~2018-05-17 18:09] MED LIST changes: +ALBU2.5V8 INH; +HYDR-2145 PO; -HYDR25TA9 PO; +ONDA4TAB7 PO; -PROAIR HFA8.5 GM INH
[2018-05-17 18:24] VITALS: BP 149/86
[2018-05-17] MEDS ORDERED: AMOX1TAB61 PO (18:51)
--- NOTE | 2018-05-17 18:54 | PHYS DOC ---
Past Medical History Past Medical History: Anxiety, Bronchitis, Hypertension, Seizure, Other Additional Past Medical Histor: chronic back pain from fracture, chronic dental issues Past Surgical History: No Surgical History Alcohol Use: Heavy Drug Use: None Adult General Chief Complaint Chief Complaint: EARACHE/EAR PAIN [facility] HPI Patient is a 42 year old female who presents to the emergency room with complaints of nasal congestion, sinus pressure, and tactile fevers for the last 3 days. Patient states that she woke up this morning and had severe left ear pain. She denies any drainage or bleeding from the left ear. She denies any abdominal pain, sore throat, diarrhea, or rash. Patient states she has had a dry cough. Patient states she is a smoker and reports that she smokes about a pack a day. She denies any chest pain or shortness of breath. Review of Systems Review of Systems Constitutional: Reports fever, body aches, fatigue Eyes: Denies change in visual acuity, redness, or eye pain [] HENT: See history of present illness Respiratory: See history of present illness Cardiovascular: No additional information not addressed in HPI [] GI: Denies abdominal pain or diarrhea; reports nausea and vomiting 1 after coughing yesterday. : Denies dysuria or hematuria [] Musculoskeletal: Denies back pain or joint pain [] Integument: Denies rash or skin lesions [] Neurologic: Denies headache, focal weakness or sensory changes [] complete systems were reviewed and found to be within normal limits, except as documented in this note. Allergies Allergies Allergies Coded Allergies Type Severity Reaction Last Updated Verified tramadol Allergy Intermediate 03/02/18 Yes Physical Exam Physical Exam Constitutional: Well developed, well nourished, no acute distress, non-toxic appearance, obese. [] HENT: Normocephalic, atraumatic, bilateral external ears normal, L TM infected with erythema and bulging no perforation, R TM normal, cobblestone appearance of posterior pharyx with mild erythema, oropharynx moist, no oral exudates, maxillary sinus tenderness to palpation, Eyes: conjunctiva normal, no discharge. [] Neck: Normal range of motion, no tenderness, supple, no stridor. [] Cardiovascular:Heart rate regular rhythm, no murmur [] Lungs & Thorax: Bilateral breath sounds clear to auscultation [] Skin: Warm, dry, no erythema, no rash. [] Extremities: No cyanosis, ROM intact, no edema. [] Neurologic: Alert and oriented X 3, normal motor function, normal sensory function, no focal deficits noted. [] Psychologic: Affect normal, judgement normal, mood normal. [] Current Patient Data Vital Signs Vital Signs Date Time Temp Pulse Resp B/P (MAP) Pulse Ox O2 Delivery O2 Flow Rate FiO2 05/17/18 18:24 97.5 99 20 149/86 (107) 99 Room Air 97.5 EKG EKG [] Radiology/Procedures Radiology/Procedures [] Course & Med Decision Making Course & Med Decision Making Pertinent Labs and Imaging studies reviewed. (See chart for details) Dx: L OM, sinusitis, URI Pt was given 10 mg of decadron PO in ER. Prescription for augmentin written. Avoid airway irritants, increase clear fluids, Follow up with PCP next week, return to ER if sx worsen. Patient verbalized an understanding of home care, medications, follow-up, and return to ED instructions and was in agreement with the plan of care. [] Dragon Disclaimer Dragon Disclaimer This electronic medical record was generated, in whole or in part, using a voice recognition dictation system. Departure Departure Impression: Primary Impression: URI (upper respiratory infection) Additional Impressions: Left acute otitis media Sinusitis, acute maxillary Disposition: 01 HOME, SELF-CARE Condition: STABLE Referrals: NO PCP (PCP) Patient Instructions: Otitis Media with Effusion, Sinusitis, [id number], Upper Respiratory Infection, Adult, [id number] Additional Instructions: Fill prescription(s) and use as directed. Recommend use of a Cool mist humidifier in room at bedtime. Alternate Tylenol or ibuprofen as needed for pain /fever. Increase clear fluids. Avoid airway triggers such as smoke, fragrance, dust, and pollen. May take [id number] cough suppressants as needed. Follow -up with your primary care doctor symptoms persist, return to the ER symptoms worsen. 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
[2018-05-17] MEDS: DEXAMETHASONE SOD PHOS 20 MG/5 ML VIAL. PO ONE (18:58)
== END 2018-05-17 19:03 | disposition home or self-care (01) ==
LOC: ER 18:09
DX: J06.9 Acute upper respiratory infection, unspecified (principal); H66.92 Otitis media, unspecified, left ear; J01.00 Acute maxillary sinusitis, unspecified; R53.83 Other fatigue; R11.2 Nausea with vomiting, unspecified; M79.18 Myalgia, other site; F41.9 Anxiety disorder, unspecified; I10 Essential (primary) hypertension; F17.200 Nicotine dependence, unspecified, uncomplicated; G89.29 Other chronic pain; F10.20 Alcohol dependence, uncomplicated; Y90.9 Presence of alcohol in blood, level not specified; Z88.8 Allergy status to other drugs, medicaments and biological substances
CPT/HCPCS: 99283; J1100

== ENCOUNTER 2018-05-21 11:48 | Emergency (ER) | payer SELFPAY ==
[~2018-05-21] VITALS: Ht 149.9 cm; Wt 90.7 kg
[2018-05-21 12:50] VITALS: BP 130/66
[2018-05-21] MEDS ORDERED: predniSONE 10 MG TABLET PO ONE (13:15)
[2018-05-21] MEDS ORDERED: IPRATRPIUM/ALBUTEROL 0.5/2.5MG 3 ML NEBU. NEB ONE (13:15)
[2018-05-21] MEDS ORDERED: AZIT250T PO (14:19)
[2018-05-21] MEDS ORDERED: PRED50TA PO (14:19)
[2018-05-21] MEDS ORDERED: ALBU2.5V8 INH (14:19)
--- NOTE | 2018-05-21 14:19 | PHYS DOC ---
Past Medical History Past Medical History: Anxiety, Bronchitis, Hypertension, Seizure, Other Additional Past Medical Histor: chronic back pain from fracture, chronic dental issues Past Surgical History: No Surgical History Alcohol Use: Heavy Drug Use: None Adult General Chief Complaint Chief Complaint: COUGH HPI HPI Patient is a 42 year old female who presents with a productive cough with left ear pain. She denies chest pain or shortness of breath. She states that she has been having wheezing. She was treated for a similar condition approximately a week ago with amoxicillin. She states that she felt better for a while but then worsened. Review of Systems Review of Systems Constitutional: Denies fever or chills [] Eyes: Denies change in visual acuity, redness, or eye pain [] HENT: See history of present illness Respiratory: See history of present illness Cardiovascular: No additional information not addressed in HPI [] GI: Denies abdominal pain, nausea, vomiting, bloody stools or diarrhea [] : Denies dysuria or hematuria [] Musculoskeletal: Denies back pain or joint pain [] Integument: Denies rash or skin lesions [] Neurologic: Denies headache, focal weakness or sensory changes [] Endocrine: Denies polyuria or polydipsia [] All other systems were reviewed and found to be within normal limits, except as documented in this note. Current Medications Current Medications Current Medications Medications (Trade) Dose Ordered Sig/Vivien Start Time Stop Time Status Last Admin Dose Admin Albuterol/ Ipratropium (Duoneb) 3 ml 1X ONCE 05/21/18 13:15 05/21/18 13:16 DC 05/21/18 13:18 3 ML Prednisone (Prednisone) 50 mg 1X ONCE 05/21/18 13:15 05/21/18 13:16 DC 05/21/18 13:14 50 MG Allergies Allergies Allergies Coded Allergies Type Severity Reaction Last Updated Verified tramadol Allergy Intermediate 03/02/18 Yes Physical Exam Physical Exam Constitutional: Well developed, well nourished, no acute distress, non-toxic appearance. [] HENT: Normocephalic, atraumatic, right tympanic membrane is normal, tympanic membrane is erythematous, oropharynx moist, no oral exudates, nose normal. [] Eyes: PERRLA, EOMI, conjunctiva normal, no discharge. [] Neck: Normal range of motion, no tenderness, supple, no stridor. [] Cardiovascular:Heart rate regular rhythm, no murmur [] Lungs & Thorax: Bilateral breath sounds are decreased with inspiratory wheezes noted Abdomen: Bowel sounds normal, soft, no tenderness, no masses, no pulsatile masses. [] Skin: Warm, dry, no erythema, no rash. [] Neurologic: Alert and oriented X 3, normal motor function, normal sensory function, no focal deficits noted. [] Psychologic: Affect normal, judgement normal, mood normal. [] Current Patient Data Vital Signs Vital Signs Date Time Temp Pulse Resp B/P (MAP) Pulse Ox O2 Delivery O2 Flow Rate FiO2 05/21/18 13:18 97 Room Air 05/21/18 12:50 98.3 72 19 130/66 (87) 98.3 EKG EKG [] Radiology/Procedures Radiology/Procedures [] Course & Med Decision Making Course & Med Decision Making Pertinent Labs and Imaging studies reviewed. (See chart for details) The patient was given a breathing treatment in the emergency department with resolution of her wheezing. Dragon Disclaimer Dragon Disclaimer This electronic medical record was generated, in whole or in part, using a voice recognition dictation system. Departure Departure Impression: Primary Impression: Bronchitis Additional Impression: Left acute otitis media Disposition: HOME, SELF-CARE Condition: STABLE Referrals: NO PCP (PCP) Patient Instructions: Acute Bronchitis, Otitis Media, Adult Additional Instructions: Take the medications as directed. Increase fluids and rest. You may use ibuprofen or Tylenol for pain. Follow-up with your primary care provider for recheck in 4 days or return to the emergency department if worsening. Scripts Prednisone (PREDNISONE) 50 Mg Tablet 1 TAB PO DAILY for bronchitis, #5 TAB Prov: LUH GAVIN APRN 05/21/18 Albuterol Sulfate (Proair Hfa) 8.5 Gm Hfa.aer.ad 1 PUFF INH PRN Q6HRS PRN for SHORTNESS OF BREATH, #1 INHALER Prov: LUH GAVIN APRN 05/21/18 Azithromycin (ZITHROMAX) 250 Mg Tablet 1 PKG PO UD for bronchitis, #1 PKG Prov: LUH GAVIN APRN 05/21/18 Problem Qualifiers LUH GAVIN APRN May 21, 2018 14:19
== END 2018-05-21 14:25 | disposition home or self-care (01) ==
LOC: ER 11:48
DX: J40 Bronchitis, not specified as acute or chronic (principal); H66.92 Otitis media, unspecified, left ear; G89.29 Other chronic pain; F10.20 Alcohol dependence, uncomplicated; Y90.9 Presence of alcohol in blood, level not specified
CPT/HCPCS: 94640; 99283; J7512; J7620

== ENCOUNTER 2018-08-23 14:05 | Emergency (ER) | payer SELFPAY ==
[~2018-08-23] VITALS: Ht 149.9 cm; Wt 77.1 kg
[~2018-08-23 14:05] MED LIST changes: +AZIT250T PO
[2018-08-23 15:18] VITALS: BP 131/68
[2018-08-23] MEDS ORDERED: DEXAMETHASONE 4 MG TABLET PO STA (15:46)
--- NOTE | 2018-08-23 15:58 | PHYS DOC ---
Past Medical History Past Medical History: Anxiety, Bronchitis, Hypertension, Seizure, Other Additional Past Medical Histor: chronic back pain from fracture, chronic dental issues (KOKI MARCELINO APRN) Past Surgical History: No Surgical History (KOKI MARCELINO APRN) Additional Information: 1 PPD Alcohol Use: Heavy Additional Information: DRINKS 3 TO 4 DAYS A WEEK, [place] Drug Use: None (KOKI MARCELINO APRN) Adult General Chief Complaint Chief Complaint: COUGH HPI HPI Patient is a 43 year old female who presents with sinus symptoms have been ongoing for 2 days. Patient states her symptoms include runny nose, cough, sore throat, congestion, head pressure. States that she's also vomited after choking on her mucus. Tastes acid in her throat. She is a smoker. Taken mucus next and Safe Tussin at home and Mucinex is helping her drain. Rates her pain as 7 out of 10 and burning. (KOKI MARCELINO APRN) Review of Systems Review of Systems Constitutional: Denies fever or chills [] Eyes: Denies change in visual acuity, redness, or eye pain [] HENT: Reports nasal congestion, runny nose and sore throat [] Respiratory: Reports cough or shortness of breath [] Cardiovascular: No additional information not addressed in HPI [] GI: Denies abdominal pain, has nausea and vomiting Denies bloody stools or diarrhea [] : Denies dysuria or hematuria [] Musculoskeletal: Reports chronic back pain and denies joint pain [] Integument: Denies rash or skin lesions [] Neurologic: Denies headache, focal weakness or sensory changes [] Endocrine: Denies polyuria or polydipsia [] Complete systems were reviewed and found to be within normal limits, except as documented in this note. (KOKI MARCELINO APRN) Current Medications Current Medications Current Medications Medications (Trade) Dose Ordered Sig/Vivien Start Time Stop Time Status Last Admin Dose Admin Albuterol/ Ipratropium (Duoneb) 3 ml 1X ONCE 08/23/18 16:00 08/23/18 16:01 DC 08/23/18 16:41 3 ML Benzonatate (Tessalon Perle) 100 mg 1X ONCE 08/23/18 16:00 08/23/18 16:01 DC 08/23/18 16:14 100 MG Dexamethasone (Decadron) 10 mg 1X STAT 08/23/18 15:46 08/23/18 15:50 DC 08/23/18 16:15 10 MG Ondansetron HCl (Zofran Odt) 4 mg 1X ONCE 08/23/18 16:00 08/23/18 16:01 DC 08/23/18 16:14 4 MG (KOKI NDIAYE DO) Allergies Allergies Allergies Coded Allergies Type Severity Reaction Last Updated Verified tramadol Allergy Intermediate 03/02/18 Yes (KOKI NDIAYE DO) Physical Exam Physical Exam Constitutional: Well developed, well nourished, no acute distress, non-toxic appearance. [] HENT: Normocephalic, atraumatic, bilateral external ears normal, oropharynx moist, no oral exudates, nose normal. [] Eyes: PERRLA, EOMI, conjunctiva normal, no discharge. [] Neck: Normal range of motion, no tenderness, supple, no stridor. [] Cardiovascular:Heart rate regular rhythm, no murmur [] Lungs & Thorax: Bilateral breath sounds has diffuse wheezing Abdomen: Soft, no tenderness, no masses, no pulsatile masses. [] Skin: Warm, dry, no erythema, no rash. [] Back: No tenderness, no CVA tenderness. [] Extremities: No tenderness, no cyanosis, no clubbing, ROM intact, no edema. [] Neurologic: Alert and oriented X 3, normal motor function, normal sensory function, no focal deficits noted. [] Psychologic: Affect normal, judgement normal, mood normal. [] (KOKI MARCELINO APRN) Current Patient Data Vital Signs Vital Signs Date Time Temp Pulse Resp B/P (MAP) Pulse Ox O2 Delivery O2 Flow Rate FiO2 08/23/18 16:41 Room Air 08/23/18 15:18 98.6 96 16 131/68 (89) 98 98.6 (KOKI NDIAYE DO) EKG EKG [] (KOKI MARCELINO APRN) Radiology/Procedures Radiology/Procedures []PATIENT: SIVA GUILLAUMEOUNT: [id number]#: [id number] : 1975 LOCATION: ER AGE: 43 SEX: F EXAM STATUS: REG ER ORD. PHYSICIAN: KOKI MARCELINO APRN REASON: cough,congested, x 4days PROCEDURE: CHEST PA & LATERAL INDICATION: Cough and congestion COMPARISON: July 30, 2017 FINDINGS: 2 view of chest obtained. No definite focal airspace consolidation. Degenerative changes the spine with osteophyte formation. Cardiac silhouette is not enlarged IMPRESSION: 1. No focal airspace consolidation or edema. Electronically signed by: Venkat Horne MD (08/23/2018 4:08 PM) [facility] (KOKI MARCELINO APRN) Course & Med Decision Making Course & Med Decision Making Pertinent Labs and Imaging studies reviewed. (See chart for details) Will get chest x-ray, and give supportive medications. Patient is agreeable. Chest x-ray is negative. Appears to have bronchitis. Will d/c home with supportive care. Some improvement with treatment will d/c home with prescriptions. (KOKI MARCELINO APRN) Dragon Disclaimer Dragon Disclaimer This electronic medical record was generated, in whole or in part, using a voice recognition dictation system. (KOKI MARCELINO APRN) Departure Departure Impression: Primary Impression: Bronchitis Disposition: , SELF-CARE Condition: STABLE Referrals: NO PCP (PCP) Patient Instructions: Acute Bronchitis Additional Instructions: Follow up with primary care doctor. Return to ER as needed. Take Mucinex and Zyrtec over the counter as directed. Take prescribed medications as directed. Scripts Benzonatate (TESSALON PERLE) 100 Mg Capsule 1 CAP PO TID PRN for COUGH, #21 CAP Prov: KOKI MARCELINO APRN 08/23/18 Ondansetron (ONDANSETRON ODT) 4 Mg Tab.rapdis 1 TAB PO PRN Q6-8HRS PRN for NAUSEA, #16 TAB Prov: KOKI MARCELINO APRN 08/23/18 Attending Signature Attending Signature I have reviewed the PA/CARDER BLANKETS's note and plan of care. I was available for consultation as needed during the patient's visit in the emergency department. I agree with the clinical impression, plan, and disposition. (KOKI NDIAYE DO) KOKI MARCELINO APRN August 23, 2018 15:58 KOKI NDIAYE DO August 24, 2018 10:45
[2018-08-23] MEDS ORDERED: ONDANSETRON ODT 4 MG TAB.RAPDIS. PO ONE (16:00)
[2018-08-23] MEDS ORDERED: BENZONATATE 100 MG CAPSULE. PO ONE (16:00)
[2018-08-23] MEDS ORDERED: IPRATRPIUM/ALBUTEROL 0.5/2.5MG 3 ML NEBU. NEB ONE (16:00)
--- NOTE | 2018-08-23 16:11 | RAD ---
INDICATION: Cough and congestion COMPARISON: July 30, 2017 FINDINGS: 2 view of chest obtained. No definite focal airspace consolidation. Degenerative changes the spine with osteophyte formation. Cardiac silhouette is not enlarged IMPRESSION: 1. No focal airspace consolidation or edema. Electronically signed by: Venkat Horne MD (08/23/2018 4:08 PM) [facility]
[2018-08-23] MEDS ORDERED: ONDA4TAB12 PO (16:18)
[2018-08-23] MEDS ORDERED: BENZ100C PO (16:18)
== END 2018-08-23 17:22 | disposition home or self-care (01) ==
LOC: ER 14:05
DX: J40 Bronchitis, not specified as acute or chronic (principal); F41.9 Anxiety disorder, unspecified; I10 Essential (primary) hypertension; G89.29 Other chronic pain; F17.200 Nicotine dependence, unspecified, uncomplicated; F10.20 Alcohol dependence, uncomplicated; Y90.9 Presence of alcohol in blood, level not specified; Z88.5 Allergy status to narcotic agent
CPT/HCPCS: 71046; 94640; 99284; J7620; J8540; Q0162

== ENCOUNTER 2018-08-26 11:21 | Emergency (ER) | payer SELFPAY ==
[~2018-08-26] VITALS: Ht 149.9 cm; Wt 74.8 kg
[~2018-08-26 11:21] MED LIST changes: +BENZ100C PO; +ONDA4TAB12 PO
[2018-08-26 11:37] VITALS: BP 147/82
[2018-08-26] MEDS ORDERED: IPRATRPIUM/ALBUTEROL 0.5/2.5MG 3 ML NEBU. NEB ONE (12:00)
[2018-08-26] MEDS ORDERED: PRED50TA PO (12:02)
[2018-08-26] MEDS ORDERED: HYDR115S2 PO (12:02)
[2018-08-26] MEDS ORDERED: AMOX500C PO (12:02)
[2018-08-26] MEDS ORDERED: ALBU2.5V8 INH (12:02)
--- NOTE | 2018-08-26 12:02 | PHYS DOC ---
Past Medical History Past Medical History: Anxiety, Bronchitis, Hypertension, Seizure, Other Additional Past Medical Histor: chronic back pain from fracture, chronic dental issues Past Surgical History: No Surgical History Alcohol Use: Heavy Drug Use: None Adult General Chief Complaint Chief Complaint: Congestion [facility] HPI Patient is a 43 year old smoker female who presents with complaining of cough and congestion. Patient complaining of nasal congestion, productive cough with clear sputum, shortness of breath, myalgia, sore throat for the last 5 days that did not get better with treatment given in emergency room 4 days ago. Patient had sick contacts at home. Patient did not have antibiotic and had unremarkable chest x-ray in her recent ER visit. Review of Systems Review of Systems Constitutional: Denies fever or chills [] Eyes: Denies change in visual acuity, redness, or eye pain [] HENT: Reports nasal congestion and sore throat Respiratory: Reports cough and shortness of breath Cardiovascular: No additional information not addressed in HPI [] GI: Denies abdominal pain, nausea, vomiting, bloody stools or diarrhea [] : Denies dysuria or hematuria [] Musculoskeletal: Denies back pain or joint pain [] Integument: Denies rash or skin lesions [] Neurologic: Denies headache, focal weakness or sensory changes [] Endocrine: Denies polyuria or polydipsia [] All other systems were reviewed and found to be within normal limits, except as documented in this note. Allergies Allergies Allergies Coded Allergies Type Severity Reaction Last Updated Verified tramadol Allergy Intermediate 03/02/18 Yes Physical Exam Physical Exam Constitutional: Well developed, well nourished, mild distress, non-toxic appearance. [] HENT: Normocephalic, atraumatic, bilateral external ears normal, oropharynx moist, no oral exudates, nose normal. [] Eyes: PERRLA, EOMI, conjunctiva normal, no discharge. [] Neck: Normal range of motion, no tenderness, supple, no stridor. [] Cardiovascular:Heart rate regular rhythm, no murmur [] Lungs & Thorax: Bilateral breath sounds clear to auscultation [] Abdomen: Bowel sounds normal, soft, no tenderness, no masses, no pulsatile masses. [] Skin: Warm, dry, no erythema, no rash. [] Back: No tenderness, no CVA tenderness. [] Extremities: No tenderness, no cyanosis, no clubbing, ROM intact, no edema. [] Neurologic: Alert and oriented X 3, normal motor function, normal sensory function, no focal deficits noted. [] Psychologic: Affect anxious, judgement normal, mood normal. [] Current Patient Data Vital Signs Vital Signs Date Time Temp Pulse Resp B/P (MAP) Pulse Ox O2 Delivery O2 Flow Rate FiO2 08/26/18 11:37 98.4 82 16 147/82 (103) 94 Room Air 98.4 EKG EKG [] Radiology/Procedures Radiology/Procedures [] Course & Med Decision Making Course & Med Decision Making I've spoken with the patient and/or caregivers. I've explained the patient's condition, diagnosis and treatment plan based on information available to me at this time. I've answered the patient's and/or caregivers questions and addressed any concerns. The patient and/or caregivers have a good understanding the patient's diagnosis, condition and treatment plan as can be expected at this point. Vital signs have been stabilized. The patient's condition is stable for discharge from the emergency department. The patient will pursue further outpatient evaluation with her primary care provider or other designated consulting physician as outlined in the discharge instructions. Patient and/or caregivers are agreeable to this plan of care and follow-up instructions have been explained in detail. The patient and/or careg bethany have received these instructions in written format and expressed understanding of these discharge instructions. The patient and her caregivers are aware that if any significant change in condition or worsening of symptoms should prompt him to immediately return to this of the closest emergency department. If an emergent department is not readily available I would encourage him to call 911. Donna Disclaimer Donna Disclaimer This electronic medical record was generated, in whole or in part, using a voice recognition dictation system. Departure Departure Impression: Primary Impression: URI (upper respiratory infection) Additional Impression: Tobacco abuse Condition: STABLE Referrals: NO PCP (PCP) Patient Instructions: Smoking Cessation, Tips For Success, Upper Respiratory Infection, Adult Additional Instructions: Drink plenty of liquids Follow-up with your primary care physician in 3-5 days Return to ER if not getting better Scripts Prednisone (PREDNISONE) 50 Mg Tablet 1 TAB PO DAILY, #5 TAB Prov: YEISON ROSSI MD 08/26/18 Hydrocodone/Chlorphen P-Stirex (Tussionex Pennkinetic Susp) 115 Ml Johana.er.12h 5 ML PO BID for cough and congestion, #60 ML Prov: YEISON ROSSI MD 08/26/18 Albuterol Sulfate (PROAIR HFA INHALER) 8.5 Gm Hfa.aer.ad 2 PUFF INH PRN Q6HRS PRN for SHORTNESS OF BREATH, #1 INHALER 0 Refills Prov: YEISON ROSSI MD 08/26/18 Amoxicillin (AMOXICILLIN) 500 Mg Capsule 1 CAP PO Q8HRS for infection, #30 CAP Prov: YEISON ROSSI MD 08/26/18 Problem Qualifiers Primary Impression: URI (upper respiratory infection) URI type: unspecified URI Qualified Codes: J06.9 - Acute upper respiratory infection, unspecified YEISON ROSSI MD August 26, 2018 12:02
== END 2018-08-26 12:33 | disposition home or self-care (01) ==
LOC: ER 11:21
DX: J06.9 Acute upper respiratory infection, unspecified (principal); F41.9 Anxiety disorder, unspecified; I10 Essential (primary) hypertension; G89.29 Other chronic pain; F10.20 Alcohol dependence, uncomplicated; Y90.9 Presence of alcohol in blood, level not specified; Z72.0 Tobacco use; Z88.5 Allergy status to narcotic agent
CPT/HCPCS: 94640; 99283; J7620

== ENCOUNTER 2019-06-12 13:01 | Emergency (ER) | payer SELFPAY ==
[~2019-06-12] VITALS: Ht 149.9 cm; Wt 72.7 kg
[~2019-06-12 13:01] MED LIST changes: +HYDR115S2 PO
[2019-06-12 14:50] VITALS: BP 128/87
[2019-06-12] MEDS ORDERED: AMOX500T PO (15:32)
[2019-06-12] MEDS ORDERED: DICL50TA2 PO (15:32)
--- NOTE | 2019-06-12 15:32 | PHYS DOC ---
Past Medical History Past Medical History: Anxiety, Bronchitis, Hypertension, Seizure, Other Additional Past Medical Histor: chronic back pain from fracture, chronic dental issues Past Surgical History: No Surgical History Smoking Status: Current Every Day Smoker Alcohol Use: Heavy Drug Use: None Adult General Chief Complaint Chief Complaint: DENTAL PROBLEM HPI HPI Patient is a 43 year old female with history of hypertension who presents to the ED today complaining of 8 out of 10 left lower gum dental pain described as a poking sensation to her gum, symptoms began a week ago. Patient reports having an appointment with her dentist on Monday next week. Denies any fever or trismus. Review of Systems Review of Systems Constitutional: Denies fever or chills [] HENT: Reports left lower gum dental pain. Denies nasal congestion or sore throat [] Musculoskeletal: Denies back pain or joint pain [] Integument: Denies rash or skin lesions [] Neurologic: Denies headache, focal weakness or sensory changes [] All other systems were reviewed and found to be within normal limits, except as documented in this note. Allergies Allergies Allergies Coded Allergies Type Severity Reaction Last Updated Verified tramadol Allergy Intermediate 03/02/18 Yes Physical Exam Physical Exam Constitutional: Well developed, well nourished, no acute distress, non-toxic appearance. [] HENT: Normocephalic, atraumatic, bilateral external ears normal, oropharynx moist, no oral exudates, nose normal. [] tooth #18 is broken and decayed. Skin: Warm, dry, no erythema, no rash. [] Back: No tenderness, no CVA tenderness. [] Extremities: No tenderness, no cyanosis, no clubbing, ROM intact, no edema. [] Neurologic: Alert and oriented X 3, normal motor function, normal sensory function, no focal deficits noted. [] Psychologic: Affect normal, judgement normal, mood normal. [] Current Patient Data Vital Signs Vital Signs Date Time Temp Pulse Resp B/P (MAP) Pulse Ox O2 Delivery O2 Flow Rate FiO2 06/12/19 14:50 98.0 87 20 128/87 (101) 99 98.0 EKG EKG [] Radiology/Procedures Radiology/Procedures [] Course & Med Decision Making Course & Med Decision Making Pertinent Labs and Imaging studies reviewed. (See chart for details) This is a 43-year-old female patient presented to the ED today with dental pain. Discharged with amoxicillin and Diclofenac. Follow-up with her dentist as scheduled Donna Disclaimer Donna Disclaimer This electronic medical record was generated, in whole or in part, using a voice recognition dictation system. Departure Departure Impression: Primary Impression: Dentalgia Disposition: 01 HOME, SELF-CARE Condition: STABLE Referrals: NO PCP (PCP) follow up with your dentist in 1 week Patient Instructions: Dental Pain Additional Instructions: You were seen in the emergency room for dental pain. Take the prescribed medication as ordered. Follow-up with your dentist as scheduled or sooner if you need to. Scripts Amoxicillin (AMOXICILLIN) 500 Mg Tablet 1 TAB PO BID, #20 TAB Prov: IVET ROSAS APRN 06/12/19 Diclofenac Potassium (DICLOFENAC POTASSIUM) 50 Mg Tablet 1 TAB PO BID, #20 TAB 0 Refills Prov: IVET ROSAS APRN 06/12/19 IVET ROSAS APRN Jun 12, 2019 15:32
== END 2019-06-12 15:39 | disposition home or self-care (01) ==
LOC: ER 13:01
DX: K08.89 Other specified disorders of teeth and supporting structures (principal); F41.9 Anxiety disorder, unspecified; I10 Essential (primary) hypertension; G89.29 Other chronic pain; F17.200 Nicotine dependence, unspecified, uncomplicated; F10.10 Alcohol abuse, uncomplicated; Z88.6 Allergy status to analgesic agent
CPT/HCPCS: 99283

== ENCOUNTER 2019-06-26 09:09 | Emergency (ER) | payer SELFPAY ==
[~2019-06-26] VITALS: Ht 149.9 cm; Wt 74.0 kg
[~2019-06-26 09:09] MED LIST changes: +AMOX500T PO; +DICL50TA2 PO
[2019-06-26 10:08] VITALS: BP 119/64
[2019-06-26] MEDS ORDERED: CLIN300C8 PO (10:21)
[2019-06-26] MEDS ORDERED: CHLO15MO2 PO (10:21)
[2019-06-26] MEDS ORDERED: HYDR-3164 PO (10:21)
--- NOTE | 2019-06-26 10:21 | PHYS DOC ---
Past Medical History Past Medical History: Anxiety, Bronchitis, Hypertension, Seizure, Other Additional Past Medical Histor: chronic back pain from fracture, chronic dental issues (ERIN ANTHONY KILN FURNITURE CASTER) Past Surgical History: No Surgical History (ERIN ANTHONY KILN FURNITURE CASTER) Smoking Status: Current Every Day Smoker Alcohol Use: Heavy Drug Use: None (ERIN ANTHONY APRN) Adult General Chief Complaint Chief Complaint: DENTAL PROBLEM HPI HPI Patient is a 43 year old female who presents with was here approximately 10 days ago for dental pain. Patient was given amoxicillin and diclofenac. She states that she has an allergic reaction to tramadol and the diclofenac made her short of breath. She states she was was to have a dentist appointment today but they are close due to the coronavirus. She states that they stated that they may be open again on July 15. She does not have a definite appointment and states that they are only there twice a month and you just walk-in. She is a history of hypertension anxiety. She is here today complaining of dental pain. Patient rates her pain a 10 out of 10. She states that the pain is sharp and shooting goes into her jaw. She does have tenderness to the gumline and around the tooth and into the lower inner cheek. (ERIN ANTHONY KILN FURNITURE CASTER) Review of Systems Review of Systems HENT: Denies nasal congestion or sore throat. Left dental pain. [] All other systems were reviewed and found to be within normal limits, except as documented in this note. (ERIN ANTHONY APRN) Allergies Allergies Allergies Coded Allergies Type Severity Reaction Last Updated Verified tramadol Allergy Intermediate 03/02/18 Yes (ALBIN AGUIRRE MD) Physical Exam Physical Exam Constitutional: Well developed, well nourished, no acute distress, non-toxic appearance. [] HENT: Normocephalic, atraumatic, bilateral external ears normal, oropharynx moist, no oral exudates, nose normal. # 18 tooth broken and many other dental caries. ] Eyes: PERRLA, EOMI, conjunctiva normal, no discharge. [] Neck: Normal range of motion, no tenderness, supple, no stridor. [] Cardiovascular:Heart rate regular rhythm, no murmur [] Lungs & Thorax: Bilateral breath sounds clear to auscultation [] Abdomen: Bowel sounds normal, soft, no tenderness, no masses, no pulsatile masses. [] Skin: Warm, dry, no erythema, no rash. [] Back: No tenderness, no CVA tenderness. [] Extremities: No tenderness, no cyanosis, no clubbing, ROM intact, no edema. [] Neurologic: Alert and oriented X 3, normal motor function, normal sensory function, no focal deficits noted. [] Psychologic: Affect normal, judgement normal, mood normal. [] (ERIN ANTHONY APRN) Current Patient Data Vital Signs Vital Signs Date Time Temp Pulse Resp B/P (MAP) Pulse Ox O2 Delivery O2 Flow Rate FiO2 06/26/19 10:08 98.3 20 119/64 (82) 96 Room Air 98.3 06/26/19 09:49 20 (ALBIN AGUIRRE MD) EKG EKG [] (ERIN ANTHONY APRN) Radiology/Procedures Radiology/Procedures [] (ERIN ANTHONY APRN) Course & Med Decision Making Course & Med Decision Making Pertinent Labs and Imaging studies reviewed. (See chart for details) There is one place facial swelling on the left side of the face. She has te nderness to the back lower inner cheek mucosa. There is no abscess felt. Patient does have a broken #18 tooth with many other dental caries. Patient will be given clindamycin and pain medication. She is told that she needs to get in and be seen with a dentist as soon as possible. Patient is educated that we do not have dental services will call in the emergency room. Afebrile. Alert and oriented. Speaks in full clear sentences. Denies nausea, vomiting, body aches, fevers, chills, dizziness, visual changes, numbness or tingling. [] (ERIN ANTHONY APRN) Course & Med Decision Making Staff Physician Addendum: I was working in the ER during the course of this patient's visit. I was available for consultation as needed, but I was not directly involved in the care of this patient. (ALBIN AGUIRRE MD) Dragon Disclaimer Dragon Disclaimer This electronic medical record was generated, in whole or in part, using a voice recognition dictation system. (ERIN ANTHONY APRN) Departure Departure Impression: Primary Impression: Dentalgia Disposition: 01 HOME, SELF-CARE Condition: STABLE Referrals: NO PCP (PCP) Patient Instructions: Dental Caries-Brief Additional Instructions: Follow-up with a dentist as soon as possible. Take medication as prescribed. Drink plenty of fluids. Scripts Chlorhexidine Gluconate (PERIDEX) 15 Ml Mouthwash 15 ML PO BID for 30 Days, #946 ML 0 Refills Prov: ERIN ANTHONY APRN 06/26/19 Clindamycin Hcl (CLINDAMYCIN HCL) 300 Mg Capsule 1 CAP PO TID, #30 CAP Prov: ERIN ANTHONY APRN 06/26/19 Hydrocodone/Apap 5-325 (NORCO 5-325 TABLET) 1 Each Tablet 1 TAB PO PRN Q6HRS PRN for PAIN, #12 TAB 0 Refills Prov: ERIN ANTHONY APRN 06/26/19 ERIN ANTHONY APRN Jun 26, 2019 10:21 ALBIN AGUIRRE MD Jun 28, 2019 06:35
== END 2019-06-26 10:27 | disposition home or self-care (01) ==
LOC: ER 09:09
DX: K08.89 Other specified disorders of teeth and supporting structures (principal); I10 Essential (primary) hypertension; F41.9 Anxiety disorder, unspecified; F17.200 Nicotine dependence, unspecified, uncomplicated; F10.20 Alcohol dependence, uncomplicated; Y90.9 Presence of alcohol in blood, level not specified
CPT/HCPCS: 99283

== ENCOUNTER 2019-10-01 10:18 | Emergency (ER) | payer SELFPAY ==
[~2019-10-01] VITALS: Ht 149.9 cm; Wt 80.5 kg
[~2019-10-01 10:18] MED LIST changes: +CHLO15MO2 PO; +CLIN300C8 PO
[2019-10-01] MEDS ORDERED: CLIN300C8 PO (10:53)
[2019-10-01] MEDS ORDERED: NAPR-514 PO (10:53)
--- NOTE | 2019-10-01 10:53 | PHYS DOC ---
Past Medical History Past Medical History: Anxiety, Bronchitis, Hypertension, Seizure, Other Additional Past Medical Histor: chronic back pain from fracture, chronic dental issues Past Surgical History: No Surgical History Smoking Status: Current Every Day Smoker Alcohol Use: Heavy Drug Use: None General Adult EDM: Chief Complaint: DENTAL PROBLEM HPI: HPI: Patient is a 44-year-old female with poor dentition who presents with what she describes as a dental infection. She states the part of her tooth broke several months ago has been giving her trouble but now she is noticed increased pain and swelling. She has no trouble opening or closing her jaw. She said no fever facial swelling or redness. [] Review of Systems: Review of Systems: Constitutional: Denies fever or chills. [] Eyes: Denies change in visual acuity. [] HENT: Per HPI [] Respiratory: Denies cough or shortness of breath. [] Cardiovascular: Denies chest pain or edema. [] GI: Denies abdominal pain, nausea, vomiting, bloody stools or diarrhea. [] : Denies dysuria. [] Musculoskeletal: Denies back pain or joint pain. [] Integument: Denies rash. [] Neurologic: Denies headache, focal weakness or sensory changes. [] Endocrine: Denies polyuria or polydipsia. [] Lymphatic: Denies swollen glands. [] Psychiatric: Denies depression or anxiety. [] Heart Score: Risk Factors: Risk Factors: DM, Current or recent (<one month) smoker, HTN, HLP, family history of CAD, obesity. Risk Scores: Score 0 - 3: 2.5% MACE over next 6 weeks - Discharge Home Score 4 - 6: 20.3% MACE over next 6 weeks - Admit for Clinical Observation Score 7 - 10: 72.7% MACE over next 6 weeks - Early Invasive Strategies Allergies: Allergies: Allergies Coded Allergies Type Severity Reaction Last Updated Verified tramadol Allergy Intermediate 03/02/18 Yes Physical Exam: PE: Constitutional: Well developed, well nourished, mild to moderate distress, non- toxic appearance. [] HENT: Fractured left lower first molar with surrounding gingival erythema no obvious dental abscess [] Eyes: PERRLA, EOMI, conjunctiva normal, no discharge. [] Neck: Normal range of motion, no tenderness, supple, no stridor. [] Cardiovascular:Heart rate regular rhythm, no murmur [] Lungs & Thorax: Bilateral breath sounds clear to auscultation [] Abdomen: Bowel sounds normal, soft, no tenderness, no masses, no pulsatile masses. [] Skin: Warm, dry, no erythema, no rash. [] Back: No tenderness, no CVA tenderness. [] Extremities: No tenderness, no cyanosis, no clubbing, ROM intact, no edema. [] Neurologic: Alert and oriented X 3, normal motor function, normal sensory function, no focal deficits noted. [] Psychologic: Anxious [] EKG: EKG: [] Radiology/Procedures: Radiology/Procedures: [] Course & Med Decision Making: Course & Med Decision Making Pertinent Labs and Imaging studies reviewed. (See chart for details) [] Dragon Disclaimer: Dragon Disclaimer: This electronic medical record was generated, in whole or in part, using a voice recognition dictation system. Departure Departure Impression: Primary Impression: Pain, dental Disposition: HOME, SELF-CARE Condition: STABLE Referrals: NO PCP (PCP) Patient Instructions: Dental Abscess Additional Instructions: You need to follow with a dentist as soon as possible. Scripts Naproxen (NAPROXEN) 500 Mg Tablet 1 TAB PO BID PRN for PAIN, #30 TAB 1 Refill Prov: CHRISTOFER MCKEON DO 10/01/19 Clindamycin Hcl (CLINDAMYCIN HCL) 300 Mg Capsule 1 CAP PO TID for Infection, #30 CAP Prov: CHRISTOFER MCKEON DO 10/01/19 Justicifation of Admission Dx: Justifications for Admission: Justification of Admission Dx: No CHRISTOFER MCKEON DO Oct 01, 2019 10:53
[2019-10-01] MEDS ORDERED: oxyCODONE/APAP 5/325 1 TAB TABLET PO ONE (11:00)
[2019-10-01] MEDS ORDERED: CLINDAMYCIN HCL 150 MG CAPSULE. PO ONE (11:00)
[2019-10-01 11:21] VITALS: BP 142/90
== END 2019-10-01 11:22 | disposition home or self-care (01) ==
LOC: ER 10:18
DX: K08.89 Other specified disorders of teeth and supporting structures (principal); I10 Essential (primary) hypertension; G89.29 Other chronic pain; F17.200 Nicotine dependence, unspecified, uncomplicated; Z88.6 Allergy status to analgesic agent
CPT/HCPCS: 99283

== ENCOUNTER 2019-10-20 06:44 | Emergency (ER) | payer SELFPAY ==
[~2019-10-20] VITALS: Ht 144.8 cm; Wt 94.0 kg
[~2019-10-20 06:44] MED LIST changes: +NAPR-514 PO
[2019-10-20] MEDS ORDERED: ASPIRIN 325 MG TABLET PO ONE (07:15)
[2019-10-20] MEDS ORDERED: HYDR50TA6 PO (07:25)
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
--- NOTE | 2019-10-20 07:42 | RAD ---
EXAM: CHEST PA LATERAL INDICATION: Reason: SOA, chest pressure,pt states she is retaining fluid from not taking meds / Spl. Instructions: / History: . TECHNIQUE: PA and lateral views COMPARISON: Two-view chest of 08/23/2018 FINDINGS: The heart size is normal. The great vessels appear unremarkable. There is no hilar or mediastinal mass. The lungs are clear. There is no pleural effusion or pneumothorax. There are no significant osseous abnormalities. IMPRESSION: No active cardiopulmonary disease. No significant interval change. Electronically signed by: Reuben Ramsay MD (10/20/2019 7:39 AM) [id number]
[2019-10-20 07:46] LABS: BASO % 1 % (0-3); CALCIUM 8.6 mg/dL (8.5-10.1); CREATININE 0.9 mg/dL (0.6-1.0); EOS # 0.2 x10^3/uL (0.0-0.7); EOS % 2 % (0-3); GFR 68.7; HEMATOCRIT 34.4 % (36.0-47.0); HEMOGLOBIN 11.9 g/dL (12.0-15.5); LYMPH # 1.3 x10^3/uL (1.0-4.8); LYMPH % 19 % (24-48); MEAN CORPUSCULAR HEMOGLOBIN 33 pg (25-35); MEAN CORPUSCULAR HGB CONC 35 g/dL (31-37); MEAN CORPUSCULAR VOLUME 96 fL (79-100); MONO # 0.6 x10^3/uL (0.0-1.1); MONO % 8 % (0-9); NEUT % 70 % (31-73); PLATELET COUNT 234 x10^3/uL (140-400); POTASSIUM 3.7 mmol/L (3.5-5.1); RED CELL DISTRIBUTION WIDTH 14.7 % (11.5-14.5); WHITE BLOOD COUNT 7.1 x10^3/uL (4.0-11.0)
[2019-10-20 07:51] LABS: ALBUMIN 3.5 g/dL (3.4-5.0); TOTAL BILIRUBIN 0.3 mg/dL (0.2-1.0)
[2019-10-20 07:57] LABS: PREG TEST PT QUAL NEGATIVE (NEG)
[2019-10-20 08:04] VITALS: BP 157/86
--- NOTE | 2019-10-22 07:55 | EKG ---
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
== END 2019-10-20 08:10 | disposition home or self-care (01) ==
LOC: ER 06:44
DX: R07.89 Other chest pain (principal); I10 Essential (primary) hypertension; F17.200 Nicotine dependence, unspecified, uncomplicated; G89.29 Other chronic pain; Z88.6 Allergy status to analgesic agent
CPT/HCPCS: 36415; 71046; 80053; 82553; 83690; 83735; 83880; 84484; 84703; 85025; 93005; 99285

== ENCOUNTER 2021-04-12 10:35 | Emergency (ER) | payer SELFPAY ==
[~2021-04-12] VITALS: Ht 149.9 cm; Wt 97.3 kg
[~2021-04-12 10:35] MED LIST changes: +CLIN-94 PO; -CLIN150C14 PO; +CLIN150C16 PO; -CLIN300C8 PO; +HYDR50TA9 PO; -LISI-338 PO; +LISI5TAB15 PO
[2021-04-12 11:23] VITALS: BP 138/80
== END 2021-04-12 14:21 | disposition left against medical advice (07) ==
LOC: ER 10:35
DX: M79.606 Pain in leg, unspecified (principal); Z53.21 Procedure and treatment not carried out due to patient leaving prior to being seen by health care provider

== ENCOUNTER 2021-06-21 03:23 | Inpatient (IN) | payer SELFPAY ==
[~2021-06-21] VITALS: Ht 149.9 cm; Wt 86.8 kg
--- NOTE | 2021-06-21 05:18 | ED.ADGEN ---
Past Medical History Past Medical History: Anxiety, Bronchitis, Hypertension, Seizure, Other Additional Past Medical Histor: chronic back pain from fracture, chronic dental issues, morbid obesity, Past Surgical History: No Surgical History Smoking Status: Current Every Day Smoker Alcohol Use: Heavy Drug Use: None General Adult EDM: Chief Complaint: MULTIPLE COMPLAINTS HPI: HPI: Patient is a 45 year old female coming in for 2 weeks of lower extremity edema and pain. Over the past couple days for chest tightness and a cough productive of clear phlegm. Patient states that she came in tonight because the pain was not bearable. Has a history of 1 pack/day tobacco use but denies any other medical problems. States she is a history of hypertension. She will take her h ydrochlorothiazide as needed but has not been working. Denies any other medical history but does not see a physician regularly. Family history of diabetes. Denies any personal family history of blood clots or heart failure. Review of Systems: Review of Systems: All other systems within normal limits except for as noted in the HPI Current Medications: Current Medications Medications (Trade) Dose Ordered Sig/Vivien Start Time Stop Time Status Last Admin Dose Admin Acetaminophen (Tylenol) 1,000 mg 1X ONCE 06/21/21 07:15 06/21/21 07:16 DC 06/21/21 07:37 1,000 MG Info (CONTRAST GIVEN -- Rx MONITORING) 1 each PRN DAILY PRN 06/21/21 07:45 06/23/21 07:44 Iohexol (Omnipaque 300 Mg/ml) 75 ml 1X ONCE 06/21/21 07:30 06/21/21 07:39 DC 06/21/21 07:30 75 ML Morphine Sulfate (Morphine Sulfate) 4 mg 1X ONCE 06/21/21 05:30 06/21/21 05:31 DC 06/21/21 05:30 4 MG Ondansetron HCl (Zofran) 4 mg 1X ONCE 06/21/21 05:30 06/21/21 05:31 DC 06/21/21 05:30 4 MG Oxycodone HCl (Roxicodone) 5 mg 1X ONCE 06/21/21 07:45 06/21/21 07:46 DC 06/21/21 07:38 5 MG Allergies: Allergies: Allergies Coded Allergies Type Severity Reaction Last Updated Verified tramadol Allergy Intermediate 11/23/18 Yes Physical Exam: PE: Constitutional: Well developed, well nourished, no acute distress, non-toxic appearance. [] HENT: Normocephalic, atraumatic, bilateral external ears normal, nose normal. [] Eyes: PERRLA, conjunctiva normal, no discharge. [] Neck: No rigidity, supple, no stridor. [] Cardiovascular: Regular rate and rhythm, brisk cap refill [] Lungs & Thorax: Non labored symmetric respirations, no tachypnea or respiratory distress [] Abdomen: Soft, nondistended. Skin: Warm, dry, no erythema, no rash. [] Back: Unremarkable Extremities: No deformities, range of motion grossly intact, bilateral lower extremity edema [] Neurologic: Alert and oriented X 3, no focal deficits noted. [] Psychologic: Affect normal, judgement normal, mood normal. [] Current Patient Data: Labs: Laboratory Tests Test 06/21/21 05:25 06/21/21 06:30 06/21/21 06:42 White Blood Count 10.8 x10^3/uL (4.0-11.0) Red Blood Count 3.94 x10^6/uL (3.50-5.40) Hemoglobin 11.0 g/dL (12.0-15.5) L Hematocrit 34.2 % (36.0-47.0) L Mean Corpuscular Volume 87 fL (79-100) Mean Corpuscular Hemoglobin 28 pg (25-35) Mean Corpuscular Hemoglobin Concent 32 g/dL (31-37) Red Cell Distribution Width 16.4 % (11.5-14.5) H Platelet Count 415 x10^3/uL (140-400) H Neutrophils (%) (Auto) 84 % (31-73) H Lymphocytes (%) (Auto) 8 % (24-48) L Monocytes (%) (Auto) 7 % (0-9) Eosinophils (%) (Auto) 1 % (0-3) Basophils (%) (Auto) 0 % (0-3) Neutrophils # (Auto) 9.0 x10^3/uL (1.8-7.7) H Lymphocytes # (Auto) 0.9 x10^3/uL (1.0-4.8) L Monocytes # (Auto) 0.7 x10^3/uL (0.0-1.1) Eosinophils # (Auto) 0.1 x10^3/uL (0.0-0.7) Basophils # (Auto) 0.0 x10^3/uL (0.0-0.2) D-Dimer (Gavi) < 0.27 ug/mlFEU Sodium Level 139 mmol/L (136-145) Potassium Level 3.4 mmol/L (3.5-5.1) L Chloride Level 98 mmol/L (98-107) Carbon Dioxide Level 30 mmol/L (21-32) Anion Gap 11 (6-14) Blood Urea Nitrogen 11 mg/dL (7-20) Creatinine 0.8 mg/dL (0.6-1.0) Estimated GFR (Cockcroft-Gault) 78.3 BUN/Creatinine Ratio 14 (6-20) Glucose Level 128 mg/dL (70-99) H Lactic Acid Level 1.5 mmol/L (0.4-2.0) Calcium Level 8.8 mg/dL (8.5-10.1) Phosphorus Level 2.3 mg/dL (2.6-4.7) L Magnesium Level 2.3 mg/dL (1.8-2.4) Total Bilirubin 0.3 mg/dL (0.2-1.0) Aspartate Amino Transferase (AST) 25 U/L (15-37) Alanine Aminotransferase (ALT) 42 U/L (14-59) Alkaline Phosphatase 234 U/L (46-116) H Troponin I High Sensitivity 5 ng/L (4-50) SL-Nmt-Y-Type Natriuretic Peptide 13 pg/mL (0-124) Total Protein 8.0 g/dL (6.4-8.2) Albumin 3.2 g/dL (3.4-5.0) L Albumin/Globulin Ratio 0.7 (1.0-1.7) L Lipase 110 U/L (73-393) Thyroid Stimulating Hormone (TSH) 1.815 uIU/mL (0.358-3.74) Urine Collection Type Unknown Urine Color Yellow Urine Clarity Clear Urine pH 6.5 (<5.0-8.0) Urine Specific [place] 1.020 (1.000-1.030) Urine Protein Negative mg/dL (NEG-TRACE) Urine Glucose (UA) Negative mg/dL (NEG) Urine Ketones (Stick) Negative mg/dL (NEG) Urine Blood Trace (NEG) Urine Nitrite Negative (NEG) Urine Bilirubin Negative (NEG) Urine Urobilinogen Dipstick 0.2 mg/dL (0.2 mg/dL) Urine Leukocyte Esterase Negative (NEG) Urine RBC 0 /HPF (0-2) Urine WBC Occ /HPF (0-4) Urine Squamous Epithelial Cells Mod /LPF Urine Bacteria Moderate /HPF (0-FEW) Urine Mucus Slight /LPF POC Urine HCG, Qualitative Hcg negative (Negative) Laboratory Tests 06/21/21 05:25 Laboratory Tests 06/21/21 05:25 Vital Signs: Vital Signs Date Time Temp Pulse Resp B/P (MAP) Pulse Ox O2 Delivery O2 Flow Rate FiO2 06/21/21 08:44 97.3 96 20 102/49 (66) 96 Nasal Cannula 2.0 97.3 EKG: EKG: [] Heart Score: C/O Chest Pain: N/A Risk Factors: Risk Factors: DM, Current or recent (<one month) smoker, HTN, HLP, family history of CAD, obesity. Risk Scores: Score 0 - 3: 2.5% MACE over next 6 weeks - Discharge Home Score 4 - 6: 20.3% MACE over next 6 weeks - Admit for Clinical Observation Score 7 - 10: 72.7% MACE over next 6 weeks - Early Invasive Strategies Radiology/Procedures: Radiology/Procedures: Study: CT chest with contrast INDICATION: Right basilar lung mass. COMPARISON: No previous CT of the chest. CT abdomen/pelvis 03/02/2018 TECHNIQUE: Helical CT imaging of the chest performed after the intravenous administration of 75 cc Omnipaque 300. Coronal and sagittal reformats were obtained. One or more of the following individualized dose reduction techniques were utilized for this examination: 1. Automated exposure control 2. Adjustment of the mA and/or kV according to patient size 3. Use of iterative reconstruction technique. FINDINGS: Lungs: Lobulated, perihilar mass within the right lower lobe which is solid and relatively homogeneous density. Maximum dimensions of 4.8 cm AP by 4.9 cm transverse by 3.1 cm craniocaudal. No mass or significant nodule seen elsewhere throughout either lung. Vasculature: No aortic aneurysm or dissection. Normal main pulmonary artery caliber. Mediastinum/zayra: No pathologically enlarged mediastinal or hilar lymph nodes. No pericardial effusion. Neck/axilla/chest wall: Unremarkable thyroid. There appears to be a mildly prominent right cervical chain lymph node on image 1 series 2 measured at 1.2 cm AP that is not fully included in the [id number]. Axillary lymph nodes are unremarkable. Upper abdomen: Hepatic steatosis. Prominence of the common duct but also with mild prominence on the 2018 comparison is favored within normal limits for this patient. Bones: No acute or aggressive osseous process. Age accelerated partially imaged cervical spondylosis. Scattered thoracic Schmorl's nodes. Limbus vertebra at L1. IMPRESSION: 1. Solid mass with lobulated margins at the perihilar right lower lobe measuring up to 4.8 x 4.9 x 3.1 cm. This is not typical of an infectious process and a primary lung malignancy needs to be excluded. Tissue sampling is recommended and given the central location of the mass would be easiest to biopsy via bronchoscopy. No pathologically enlarged mediastinal or hilar lymph nodes. 2. Mildly prominent 1.2 cm cervical chain lymph node on the right (image 1 series 2) which is of uncertain significance. Attention on follow-up. Electronically signed by: JANETH NAPIER MD (06/21/2021 8:36 AM) [id number] DICTATED and SIGNED BY: JANETH NAPIER MD DATE: 06/21/21 [id number] Course & Med Decision Making: Course & Med Decision Making 0600: Dr. Rubio assuming care from Dr. Brito. I agree with her history and exam as documented above. 0830: Labs and imaging as above, remarkable primarily for evidence of a large right basilar lung mass. In context, suspect that this is the etiology of patient's presenting symptoms. Discussed options and she would like to be admitted for attention from pulmonary medicine and further care. Therefore, graciously excepted for admission by Dr. Murillo. Donna Disclaimer: Donna Disclaimer: This electronic medical record was generated, in whole or in part, using a voice recognition dictation system. Departure Departure Impression: Primary Impression: Right lower lobe lung mass Disposition: ADMITTED INPATIENT Condition: STABLE Referrals: NO PCP (PCP) COLEMAN BRITO MD Jun 21, 2021 05:18 ALBINA RUBIO MD Jun 21, 2021 10:07
[2021-06-21] MEDS ORDERED: MORPHINE SULFATE 4 MG/ML INJ. IV ONE (05:30)
[2021-06-21] MEDS ORDERED: ONDANSETRON PF 4 MG/2 ML VIAL. IVP ONE (05:30)
[2021-06-21 05:44] LABS: BASO % 0 % (0-3); EOS # 0.1 x10^3/uL (0.0-0.7); EOS % 1 % (0-3); HEMATOCRIT 34.2 % (36.0-47.0); LYMPH # 0.9 x10^3/uL (1.0-4.8); LYMPH % 8 % (24-48); MEAN CORPUSCULAR HEMOGLOBIN 28 pg (25-35); MEAN CORPUSCULAR HGB CONC 32 g/dL (31-37); MEAN CORPUSCULAR VOLUME 87 fL (79-100); MONO # 0.7 x10^3/uL (0.0-1.1); MONO % 7 % (0-9); NEUT % 84 % (31-73); PLATELET COUNT 415 x10^3/uL (140-400); RED BLOOD COUNT 3.94 x10^6/uL (3.50-5.40); RED CELL DISTRIBUTION WIDTH 16.4 % (11.5-14.5); WHITE BLOOD COUNT 10.8 x10^3/uL (4.0-11.0)
--- NOTE | 2021-06-21 05:44 | EKG ---
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
[2021-06-21 05:57] LABS: CALCIUM 8.8 mg/dL (8.5-10.1); CREATININE 0.8 mg/dL (0.6-1.0); GFR 78.3; POTASSIUM 3.4 mmol/L (3.5-5.1)
[2021-06-21 06:06] LABS: ALBUMIN 3.2 g/dL (3.4-5.0); ALBUMIN/GLOBULIN RATIO 0.7 (1.0-1.7); MAGNESIUM 2.3 mg/dL (1.8-2.4); PHOSPHORUS 2.3 mg/dL (2.6-4.7); TOTAL BILIRUBIN 0.3 mg/dL (0.2-1.0)
--- NOTE | 2021-06-21 06:15 | RAD ---
Bilateral lower extremity venous duplex Doppler ultrasound HISTORY: Bilateral leg edema and swelling. Bilateral leg pain. FINDINGS: No DVT identified on grayscale sonography with compressibility, patent color Doppler blood flow and augmentation of blood flow in the common femoral veins, profunda femoral veins, superficial femoral veins and popliteal veins. CT abdomen and color Doppler level posterior tibial and peroneal veins. IMPRESSION: Negative bilateral legs for DVT. Electronically signed by: Hank Mixon MD (06/21/2021 6:13 AM) [facility]
--- NOTE | 2021-06-21 06:23 | RAD ---
AP chest x-ray HISTORY: Chest pain. COMPARISON: Chest x-ray October 20, 2019 FINDINGS: Heart size is normal. The mediastinal silhouette is normal. No pneumothorax. No pleural eff usions. At the right medial lung base there is a rounded 4.5 cm opacity or mass. Left lung is clear. Bones are normal. IMPRESSION: Right medial lung base demonstrates a 4.5 cm rounded opacity or mass lesion, this could r epresent round pneumonia versus a neoplastic mass. Consider further assessed with CT chest imaging. Electronically signed by: Hank Mixon MD (06/21/2021 6:20 AM) [facility]
[2021-06-21] MEDS ORDERED: ACETAMINOPHEN 500 MG TABLET PO ONE (07:15)
[2021-06-21 07:16] LABS: BILIRUBIN,URINE NEGATIVE (NEG); CLARITY,URINE CLEAR; COLOR,URINE YELLOW; NITRITE,URINE NEGATIVE (NEG); PH,URINE 6.5 (<5.0-8.0); PROTEIN,URINE NEGATIVE (NEG-TRACE); UROBILINOGEN,URINE 0.2 mg/dL (0.2 mg/dL)
[2021-06-21 07:17] LABS: BACTERIA,URINE MODERATE /HPF (0-FEW); RBC,URINE 0 /HPF (0-2); WBC,URINE OCC /HPF (0-4)
[2021-06-21] MEDS ORDERED: IOHEXOL 300 MG/ML 100ML VIAL. IV ONE (07:30)
[2021-06-21] MEDS ORDERED: oxyCODONE IR 5 MG TABLET PO ONE (07:45)
[2021-06-21] MEDS ORDERED: CONTRAST GIVEN. MC PRN (07:45)
--- NOTE | 2021-06-21 08:39 | RAD ---
Study: CT chest with contrast INDICATION: Right basilar lung mass. COMPARISON: No previous CT of the chest. CT abdomen/pelvis 03/02/2018 TECHNIQUE: Helical CT imaging of the chest performed after the intravenous administration of 75 cc Om nipaque 300. Coronal and sagittal reformats were obtained. One or more of the following individualized dose reduction techniques were utilized for this examinat ion: 1. Automated exposure control 2. Adjustment of the mA and/or kV according to patient size 3. Use of iterative reconstruction technique. FINDINGS: Lungs: Lobulated, perihilar mass within the right lower lobe which is solid and relatively homogeneou s density. Maximum dimensions of 4.8 cm AP by 4.9 cm transverse by 3.1 cm craniocaudal. No mass or si gnificant nodule seen elsewhere throughout either lung. Vasculature: No aortic aneurysm or dissection. Normal main pulmonary artery caliber. Mediastinum/zayra: No pathologically enlarged mediastinal or hilar lymph nodes. No pericardial effusio n. Neck/axilla/chest wall: Unremarkable thyroid. There appears to be a mildly prominent right cervical c nora lymph node on image 1 series 2 measured at 1.2 cm AP that is not fully included in the field-of- view. Axillary lymph nodes are unremarkable. Upper abdomen: Hepatic steatosis. Prominence of the common duct but also with mild prominence on the 2018 comparison is favored within normal limits for this patient. Bones: No acute or aggressive osseous process. Age accelerated partially imaged cervical spondylosis. Scattered thoracic Schmorl's nodes. Limbus vertebra at L1. IMPRESSION: 1. Solid mass with lobulated margins at the perihilar right lower lobe measuring up to 4.8 x 4.9 x 3 .1 cm. This is not typical of an infectious process and a primary lung malignancy needs to be exclude d. Tissue sampling is recommended and given the central location of the mass would be easiest to biop sy via bronchoscopy. No pathologically enlarged mediastinal or hilar lymph nodes. 2. Mildly prominent 1.2 cm cervical chain lymph node on the right (image 1 series 2) which is of unc ertain significance. Attention on follow-up. Electronically signed by: JANETH NAPIER MD (06/21/2021 8:36 AM) [id number]
[2021-06-21] MEDS ORDERED: ACETAMINOPHEN 325 MG TABLET. PO PRN (10:15)
[2021-06-21] MEDS ORDERED: ONDANSETRON PF 4 MG/2 ML VIAL. IVP PRN (10:15)
--- NOTE | 2021-06-21 10:15 | RAD ---
EXAM: Lumbar spine CT without contrast. HISTORY: Lower back pain. Lung mass. TECHNIQUE: Computed tomographic images of the lumbar spine were obtained without contrast. Multiplana r reformatting was performed. *One or more of the following individualized dose reduction techniques were utilized for this examina tion: 1. Automated exposure control. 2. Adjustment of the mA and/or kV according to patient size. 3. Use of iterative reconstruction technique. COMPARISON: 03/02/2018 FINDINGS: There is minimal retrolisthesis of L3 on L4 and L4 on L5. There are anterior superior endpl ate deformities with adjacent ossicles at L1, L2, L3 and L4 due to limbus vertebrae, an incidental fi nding. There is endplate remodeling with superimposed anterior superior endplate Schmorl's nodes at T 11, T12, L1, L2 and L3. There is multilevel facet arthropathy. There is no fracture or suspicious lyt ic or sclerotic osseous lesion. There is a 3.3 cm right ovarian cyst, partially included on the field -of-view. There is a vacuum phenomenon involving the sacroiliac joints. At L1-L2, there is a minimal disc bulge and age or predominant endplate remodeling. There is no steno sis. At L2-L3, there is a mild disc bulge and anterior predominant endplate remodeling. There is minimal c entral canal stenosis. At L3-L4, there is a mild disc bulge and anterior predominant endplate remodeling. There is minimal r ight foraminal stenosis. At L4-L5, there is a disc bulge. There is mild bilateral facet arthropathy. There is mild bilateral f oraminal stenosis. At L5-S1, there is no stenosis. IMPRESSION: 1. No acute osseous finding or suspicious osseous lesion. 2. Multilevel degenerative change involving the lumbar spine, described above. This is associated wit h stenosis of aforementioned levels. 3. 3.3 cm right ovarian cyst, partially included on the [id number]. Electronically signed by: Martha Church MD (06/21/2021 10:12 AM) [id number]
--- NOTE | 2021-06-21 11:55 | HP ---
DATE OF SERVICE: 06/21/2021 ADMIT DATE: 06/21/2021 CHIEF COMPLAINT: Abdominal pain, weakness, shortness of breath. HISTORY OF PRESENT ILLNESS: The patient is a pleasant 45-year-old female who smokes a pack per day. She presented to the ER with above chief complaints. She is basically swollen and weak. We did a chest x-ray that is showing a probable lung cancer. I discussed the case with ER physician and the patient's . We are going to admit the patient and consult Dr. Krishnan. PAST MEDICAL HISTORY: Tobacco abuse, anxiety, bronchitis, hypertension, seizures, chronic back pain, chronic dental issues and obesity. ALLERGIES: ULTRAM. FAMILY HISTORY: Coronary artery disease. SOCIAL HISTORY: She smokes. No drink or drugs. She is . MEDICATIONS: Reviewed. Please refer to the MRAD. REVIEW OF SYSTEMS: GENERAL: She complains of weakness. SKIN: No bruising, hair changes or rashes. EYES: No blurred, double or loss of vision. NOSE AND THROAT: No history of nosebleeds, hoarseness or sore throat. HEART: No history of palpitations, chest pain or shortness of breath on exertion. LUNGS: She complains of shortness of breath. GASTROINTESTINAL: Denies changes in appetite, nausea, vomiting, diarrhea or constipation. GENITOURINARY: No history of frequency, urgency, hesitancy or nocturia. NEUROLOGIC: Denies history of numbness, tingling, tremor or weakness. PSYCHIATRIC: She complains of depression. ENDOCRINE: No history of heat or cold intolerance, polyuria or polydipsia. EXTREMITIES: She complains of weakness and swelling. PHYSICAL EXAMINATION: VITALS: Within normal limits and are stable. GENERAL: She is swollen. HEENT: Normal cephalic atraumatic, external auditory canals are patent. EYES: Extraocular muscles are intact, pupils are equally round and reactive to light and accommodation. MUSCULOSKELETAL: Well developed, well nourished, good range of motion. ENDOCRINE: No thyromegaly was palpated, LYMPHATICS: No cervical chain or axillary nodes were noted. HEMATOPOIETIC: No bruising. NECK: Supple, no JVD, no thyromegaly was noted. LUNGS: She has bibasilar crackles. HEART: RRR, S1, S2 present. Peripheral pulses intact, no obvious murmurs were noted. ABDOMEN: Soft, nontender. Positive bowel sounds no organomegaly, normal bowel sounds. EXTREMITIES: She has 1+ edema. NEUROLOGIC: Normal speech, normal tone. A and O x 3, moves all extremities, no obvious focal deficits. PSYCHIATRIC: Normal affect, normal mood. Stable. SKIN: No ulcerations or rashes, good skin turgor, no jaundice. VASCULAR: Good capillary refill, neurovascular bundle appears to be intact. DIAGNOSTIC DATA: White count 10. Potassium is 3.4. Chest x-ray shows probable right-sided lung cancer. ASSESSMENT AND PLAN: Probable new onset lung cancer with incidental finding of hypokalemia. The patient will be admitted. We will replace her potassium. Consult Dr. Krishnan to consider bronchoscopy. Home meds. Deep venous thrombosis prophylaxis. Full code. JANESSA/ADRIANA DR: JANESSA/mackenzie TID: [id number]
[2021-06-21] MEDS: MORPHINE SULFATE 2 MG/ML INJ. IVP PRN ×3 (12:07→17:39)
[2021-06-21 14:30] VITALS: BP 139/69
--- NOTE | 2021-06-21 16:14 | NUR ---
Patient arrived to room 646 from ER at 1614. Patient A&OX4. VSS. Complaints of BLE pain & swelling. The patient, AUNDREASIVA S, 45 y/o, F admitted by MACRINA NORIEGA III, DO, was given written information regarding hospital policies, unit procedures and contact persons. Valuables were checked and noted. Will continue to monitor.
[2021-06-21 19:08] VITALS: BP 145/71
--- NOTE | 2021-06-21 19:54 | NUR ---
Patient states she does not want morphine with sedation, states her twin sister had a bad experience with this & is worried it will happen to her.
[2021-06-21] MEDS: HYDROcodone/APAP 5/325MG 1 TAB TABLET PO PRN (20:55)
[2021-06-21 22:32] VITALS: BP 143/71
[2021-06-22] VITALS (19 sets, daily range): BP systolic 102–160; BP diastolic 59–86
--- NOTE | 2021-06-22 01:20 | NUR ---
pt desats to 70% she was sleeping. woke her up and sats increased to 93%. room air. lcrn
[2021-06-22] MEDS: HYDROcodone/APAP 5/325MG 1 TAB TABLET PO PRN ×5 (03:42→22:17)
--- NOTE | 2021-06-22 03:59 | EKG ---
[facility] [address] [place] [address] Test Date: 2021-06-21 Test Time: 05:38:21 Pat Name: SIVA GUILLAUME Department: Room: 646 1 Gender: F Institutional Custodian: CATY : 1975 Requested By: COLEMAN BRITO Order Number: [id number] Reading MD: Measurements Intervals [place] Rate: 98 P: 38 VA: 142 QRS: 17 QRSD: 86 T: 43 QT: 354 QTc: 454 Interpretive Statements SINUS RHYTHM LEFT ATRIAL ABNORMALITY ABNORMAL ECG RI6.02 Compared to ECG 06/21/2021 03:34:26 Atrial abnormality now present Sinus tachycardia no longer present
[2021-06-22 06:04] LABS: BASO % 0 % (0-3); EOS # 0.2 x10^3/uL (0.0-0.7); EOS % 2 % (0-3); HEMATOCRIT 32.7 % (36.0-47.0); HEMOGLOBIN 10.5 g/dL (12.0-15.5); LYMPH # 0.8 x10^3/uL (1.0-4.8); LYMPH % 9 % (24-48); MEAN CORPUSCULAR HEMOGLOBIN 28 pg (25-35); MEAN CORPUSCULAR HGB CONC 32 g/dL (31-37); MEAN CORPUSCULAR VOLUME 87 fL (79-100); MONO # 0.7 x10^3/uL (0.0-1.1); MONO % 9 % (0-9); NEUT # 6.5 x10^3/uL (1.8-7.7); NEUT % 79 % (31-73); PLATELET COUNT 389 x10^3/uL (140-400); RED BLOOD COUNT 3.78 x10^6/uL (3.50-5.40); RED CELL DISTRIBUTION WIDTH 16.3 % (11.5-14.5); WHITE BLOOD COUNT 8.2 x10^3/uL (4.0-11.0)
[2021-06-22 06:27] LABS: CALCIUM 8.4 mg/dL (8.5-10.1); CREATININE 0.8 mg/dL (0.6-1.0); GFR 78.3; POTASSIUM 3.3 mmol/L (3.5-5.1)
--- NOTE | 2021-06-22 09:55 | CONS ---
DATE OF CONSULTATION: 06/22/2021 PULMONARY CONSULTATION ATTENDING PHYSICIAN: Josef Murillo DO REASON FOR CONSULTATION: Lung mass. HISTORY OF PRESENT ILLNESS: The patient is a 45-year-old who is obese with a BMI of 38 and has been a smoker for at least 30 years. She presented to Emergency Room with complaint of increasing leg pain and leg edema. She has a mild occasional cough. No hemoptysis. No weight loss. No significant chest pain. No headache, no nausea, vomiting or diarrhea. The patient had a CT chest, which was reviewed by me and it showed a large lobulated mass in the right lower lobe measuring 4.8 x 4.9 cm in size. There are no significant pathological adenopathy. The patient also had venous Dopplers of lower extremities, which were negative for DVT. She also had a lumbar spine CT, which did not show any metastatic focus. Consultation requested for further evaluation and management. PAST MEDICAL HISTORY: Significant for tobaccoism for 30 years. Suspect underlying COPD. History of anxiety, hypertension, chronic back pain, chronic dental issues, obesity and seizures. PAST SURGICAL HISTORY: No recent surgery. ALLERGIES: ULTRAM. FAMILY HISTORY: Coronary artery disease. SOCIAL HISTORY: Smoker for 30 years and still smoking before coming to the hospital. MEDICATIONS: Reviewed as listed in the MRAD. REVIEW OF SYSTEMS: Twelve-point review of system obtained. Pertinent positives discussed in my present illness, otherwise noncontributory. All systems that were negative were reviewed as well. PHYSICAL EXAMINATION: VITAL SIGNS: Reviewed. Afebrile, pulse ox is 94% on room air. NECK: Supple. LUNGS: Clear breath sounds. CARDIOVASCULAR: With a regular rate. ABDOMEN: Soft, obese. EXTREMITIES: With some tenderness in the legs and also in the joints. LABORATORY DATA: Reviewed. Her D-dimer is less than 0.27. BUN and creatinine normal. Platelets normal. IMPRESSION: 1. Abnormal CT chest with a large mass 4.9 x 4.8 cm in size in the right lower lobe in the perihilar area. It is somewhat centrally located. No significant pathological adenopathy. This is highly suspected for bronchogenic cancer. 2. No evidence of DVT. 3. Underlying obesity. 4. Thirty years of tobaccoism, likely underlying chronic obstructive pulmonary disease. RECOMMENDATIONS: 1. I have discussed with the patient and Interventional Radiology. Unfortunately, there is no bronchoscopy photo technician available in the hospital for me to do bronchoscopy. CT-guided biopsy will be scheduled. The patient agrees to proceed with it. She was also informed small risk of pneumothorax. 2. Once the biopsy has confirmed malignancy, then she would need a staging workup, which can be done as an outpatient. 3. PFTs as an outpatient. 4. Replace potassium. 5. Discussed with RN and Interventional Radiology and her . NATALYA DR: Khari TID: [id number] MTDD
[2021-06-22] MEDS ORDERED: POTASSIUM CHLORIDE 20 MEQ TABLET.ER. PO ONE ×2 (10:00→14:45)
[2021-06-22 10:07] LABS: PROTHROMBIN TIME PATIENT 13.6 SEC (11.7-14.0)
[2021-06-22] MEDS ORDERED: MIDAZOLAM HCL/PF 2 MG/2 ML VIAL. ONE (10:21)
[2021-06-22] MEDS ORDERED: fentaNYL PF VIAL 100 MCG/2 ML VIAL ONE (10:22)
[2021-06-22] MEDS ORDERED: LIDOCAINE WITH 8.4% SOD BICARB 3 ML DISP.SYRIN. ONE (10:22)
--- NOTE | 2021-06-22 10:55 | NUR ---
PT/OT request for orders: Screen indicates need for PT/OT evaluation. Please order PT and OT evaluation and treatment if you agree. Thanks Jack Chen PT
[2021-06-22] MEDS ORDERED: fentaNYL PF VIAL 100 MCG/2 ML VIAL IV ONE (11:30)
[2021-06-22] MEDS ORDERED: LIDOCAINE WITH 8.4% SOD BICARB 3 ML DISP.SYRIN. IJ ONE (11:30)
[2021-06-22] MEDS ORDERED: MIDAZOLAM HCL/PF 2 MG/2 ML VIAL. IV ONE (11:30)
--- NOTE | 2021-06-22 11:44 | PDOC ---
[employer] PROGRESS NOTE Date of Service DOS: DATE: 06/22/21 TIME: 11:43 Chief Complaint Chief Complaint Probable new lung cancer History of Present Illness History of Present Illness 06/23/2019 Patient seen and examined Discussed with RN Discussed with case management Chart reviewed She is going for CT-guided biopsy soon Vitals/I&O Vitals/I&O: Vital Signs Date Time Temp Pulse Resp B/P (MAP) Pulse Ox O2 Delivery O2 Flow Rate FiO2 06/22/21 11:34 103 19 100 Nasal Cannula 2.0 06/22/21 07:00 98.3 139/63 (88) 98.3 I & O 06/21/21 06/21/21 06/22/21 15:00 23:00 07:00 Intake Total 600 ml 200 ml Balance 600 ml 200 ml Physical Exam General: Alert, Oriented X3 Heart: Regular rate Lungs: Wheezing Abdomen: Normal bowel sounds Extremities: No clubbing Skin: No rashes Labs Labs: Laboratory Tests Test 06/22/21 04:50 06/22/21 09:25 06/22/21 09:40 White Blood Count 8.2 x10^3/uL (4.0-11.0) Red Blood Count 3.78 x10^6/uL (3.50-5.40) Hemoglobin 10.5 g/dL (12.0-15.5) Hematocrit 32.7 % (36.0-47.0) Mean Corpuscular Volume 87 fL (79-100) Mean Corpuscular Hemoglobin 28 pg (25-35) Mean Corpuscular Hemoglobin Concent 32 g/dL (31-37) Red Cell Distribution Width 16.3 % (11.5-14.5) Platelet Count 389 x10^3/uL (140-400) Neutrophils (%) (Auto) 79 % (31-73) Lymphocytes (%) (Auto) 9 % (24-48) Monocytes (%) (Auto) 9 % (0-9) Eosinophils (%) (Auto) 2 % (0-3) Basophils (%) (Auto) 0 % (0-3) Neutrophils # (Auto) 6.5 x10^3/uL (1.8-7.7) Lymphocytes # (Auto) 0.8 x10^3/uL (1.0-4.8) Monocytes # (Auto) 0.7 x10^3/uL (0.0-1.1) Eosinophils # (Auto) 0.2 x10^3/uL (0.0-0.7) Basophils # (Auto) 0.0 x10^3/uL (0.0-0.2) Sodium Level 136 mmol/L (136-145) Potassium Level 3.3 mmol/L (3.5-5.1) Chloride Level 96 mmol/L (98-107) Carbon Dioxide Level 31 mmol/L (21-32) Anion Gap 9 (6-14) Blood Urea Nitrogen 12 mg/dL (7-20) Creatinine 0.8 mg/dL (0.6-1.0) Estimated GFR (Cockcroft-Gault) 78.3 Glucose Level 104 mg/dL (70-99) Calcium Level 8.4 mg/dL (8.5-10.1) SARS-CoV-2 Antigen (Rapid) Negative (NEGATIVE) Prothrombin Time 13.6 SEC (11.7-14.0) Prothromb Time International Ratio 1.0 (0.8-1.1) Assessment and Plan Assessmemt and Plan Problems Medical Problems: (1) Right lower lobe lung mass Status: Acut Probable new lung cancer? Plan Await CT-guided biopsy For now continue cardiac monitoring Home meds DVT prophylaxis Full code Appreciate subspecialist input Per pulmonary recommendations please see the following we certainly agree and appreciate their input; IMPRESSION: 1. Abnormal CT chest with a large mass 4.9 x 4.8 cm in size in the right lower lobe in the perihilar area. It is somewhat centrally located. No significant pathological adenopathy. This is highly suspected for bronchogenic cancer. 2. No evidence of DVT. 3. Underlying obesity. 4. Thirty years of tobaccoism, likely underlying chronic obstructive pulmonary disease. RECOMMENDATIONS: 1. I have discussed with the patient and Interventional Radiology. Unfortunately, there is no bronchoscopy shampoo technician available in the hospital for me to do bronchoscopy. CT-guided biopsy will be scheduled. The patient agrees to proceed with it. She was also informed small risk of pneumothorax. 2. Once the biopsy has confirmed malignancy, then she would need a staging workup, which can be done as an outpatient. 3. PFTs as an outpatient. 4. Replace potassium. 5. Discussed with RN and Interventional Radiology and her . Comment Review of Relevant I have reviewed the following items cliff (where applicable) has been applied. Medications: Current Medications Medications (Trade) Dose Ordered Sig/Vivien Route PRN Reason Start Time Stop Time Status Last Admin Dose Admin Lorazepam (Ativan) 1 mg PRN Q4HRS PRN PO ANXIETY / AGITATION 06/21/21 17:15 06/22/21 09:34 Acetaminophen/ Hydrocodone Bitart (Lortab 5/325) 1 tab PRN Q4HRS PRN PO PAIN 06/21/21 20:30 06/22/21 08:13 Lidocaine HCl (Buffered Lidocaine 1%) 3 ml 1X ONCE IJ 06/22/21 11:30 06/22/21 11:32 DC 06/22/21 11:33 Midazolam HCl (Versed) 2 mg 1X ONCE IV 06/22/21 11:30 06/22/21 11:32 DC 06/22/21 11:33 Fentanyl Citrate (Fentanyl 2ml Vial) 100 mcg 1X ONCE IV 06/22/21 11:30 06/22/21 11:32 DC 06/22/21 11:33 Justifications for Admission Other Justification MACRINA NORIEGA III DO Jun 22, 2021 11:44
--- NOTE | 2021-06-22 14:06 | RAD ---
Procedure: CT-guided biopsy of a right lung mass Clinical Indication: Adult female with right lung mass Sedation: Conscious sedation using a combination of Versed and fentanyl was provided for 25 minutes, including continuous monitoring of the patients heart rate, rhythm, blood pressure, oxygen saturation and level of arousability by a trained independent observer. Sterility: The procedure was performed in its entirety using appropriate elements of sterile techniqu e. Consent: The procedure was explained in its entirety to the patient or the patients designated repres entative by a member of the treatment team, including a discussion of the risks, benefits and commonl y accepted alternatives to the procedure, as well as the expected consequences of not performing the procedure. Discussion of the risks included, but was not limited to, those that are most frequent an d those that are rare but possibly severe or life-threatening, as well as the possibility of unforese en complications. Technique and Findings: Following informed consent, the patient was prepped and draped in usual steri le fashion. Preliminary CT scan of the area of interest was performed. 1 percent lidocaine was used t o achieve local anesthesia. A small dermatotomy was made. Under periodic CT surveillance, a 19-gauge needle guide was advanced to the target lesion the right lower lobe and 4 separate 20-gauge core biop sy specimens were obtained and divided between formalin and nonbacteriostatic saline for microbiologi c analysis. A blood patch was applied as the needle guide was removed and hemostasis was achieved wit h manual compression. Complications: Trace right pneumothorax. Impression: 1. CT-guided right lung mass biopsy as described. PQRS Compliance Statement: One or more of the following individualized dose reduction techniques were utilized for this examinat ion: 1. Automated exposure control 2. Adjustment of the mA and/or kV according to patient size 3. Use of iterative reconstruction technique Electronically signed by: Kendall Jones MD (06/22/2021 2:04 PM) [id number]
--- NOTE | 2021-06-22 14:07 | RAD ---
Portable chest x-ray without comparison for status post right lung biopsy. FINDINGS: There is a miniscule right apical pneumothorax. Right lung mass is seen in the right lung b ase. Lungs are otherwise clear. Cardiomediastinum is unremarkable. IMPRESSION: 1. Miniscule right apical pneumothorax. Electronically signed by: Kendall Jones MD (06/22/2021 2:05 PM) [id number]
--- NOTE | 2021-06-22 14:17 | NUR ---
SS following for discharge planning. SS reviewed pt chart and discussed with pt RN. Pt is from home with spouse and is currently requiring oxygen at two liters nasal canula. COVID19 negative. Pulmonology following. PT/OT ordered. Self pay. Med Assist following. SS will continue to follow for discharge planning.
--- NOTE | 2021-06-22 18:27 | NUR ---
Patient continues to complain of pain in legs, biopsy site, muscle cramps, & now menstrual cramps. Dr. Sanders was ok with her getting a Lortab early so that was administered & a heat pack was made for patient.
[2021-06-23 02:33] VITALS: BP 146/68
[2021-06-23] MEDS: HYDROcodone/APAP 5/325MG 1 TAB TABLET PO PRN ×3 (02:53→13:08)
--- NOTE | 2021-06-23 02:53 | NUR ---
Pain in arms and legs and lower back- cramping and squeezing. Knees "a lot of pressure, want to snap backward, pain along shins and forearms hurt to touch." Lortab given. Weakness is involved, unable to open Coke bottle. Patient states this is all new to her.
[2021-06-23 07:00] VITALS: BP 135/64
--- NOTE | 2021-06-23 07:13 | NUR ---
Consult called to Dr. Myles.
--- NOTE | 2021-06-23 09:39 | PDOC ---
PULMONARY PROGRESS NOTES DATE: 06/23/21 TIME: 09:36 Subjective Patient denies any shortness of breath. She is status post lung mass biopsy. nonspecific back pain, knee pain and neck pain. Vitals Vital Signs Date Time Temp Pulse Resp B/P (MAP) Pulse Ox O2 Delivery O2 Flow Rate FiO2 06/23/21 08:44 94 Room Air 2.0 06/23/21 07:00 98.0 87 18 135/64 (87) 98.0 General: Alert, No acute distress Lungs: Clear Cardiovascular: S1, S2 Abdomen: Soft Neuro Exam: Alert Extremities: No Edema Skin: Warm Labs Laboratory Tests Test 06/22/21 04:50 06/22/21 09:25 06/22/21 09:40 White Blood Count 8.2 x10^3/uL (4.0-11.0) Red Blood Count 3.78 x10^6/uL (3.50-5.40) Hemoglobin 10.5 g/dL (12.0-15.5) Hematocrit 32.7 % (36.0-47.0) Mean Corpuscular Volume 87 fL (79-100) Mean Corpuscular Hemoglobin 28 pg (25-35) Mean Corpuscular Hemoglobin Concent 32 g/dL (31-37) Red Cell Distribution Width 16.3 % (11.5-14.5) Platelet Count 389 x10^3/uL (140-400) Neutrophils (%) (Auto) 79 % (31-73) Lymphocytes (%) (Auto) 9 % (24-48) Monocytes (%) (Auto) 9 % (0-9) Eosinophils (%) (Auto) 2 % (0-3) Basophils (%) (Auto) 0 % (0-3) Neutrophils # (Auto) 6.5 x10^3/uL (1.8-7.7) Lymphocytes # (Auto) 0.8 x10^3/uL (1.0-4.8) Monocytes # (Auto) 0.7 x10^3/uL (0.0-1.1) Eosinophils # (Auto) 0.2 x10^3/uL (0.0-0.7) Basophils # (Auto) 0.0 x10^3/uL (0.0-0.2) Sodium Level 136 mmol/L (136-145) Potassium Level 3.3 mmol/L (3.5-5.1) Chloride Level 96 mmol/L (98-107) Carbon Dioxide Level 31 mmol/L (21-32) Anion Gap 9 (6-14) Blood Urea Nitrogen 12 mg/dL (7-20) Creatinine 0.8 mg/dL (0.6-1.0) Estimated GFR (Cockcroft-Gault) 78.3 Glucose Level 104 mg/dL (70-99) Calcium Level 8.4 mg/dL (8.5-10.1) SARS-CoV-2 Antigen (Rapid) Negative (NEGATIVE) Prothrombin Time 13.6 SEC (11.7-14.0) Prothromb Time International Ratio 1.0 (0.8-1.1) Laboratory Tests Test 06/22/21 09:40 Prothrombin Time 13.6 SEC (11.7-14.0) Prothromb Time International Ratio 1.0 (0.8-1.1) Medications Active Scripts Medications Dose Route/Sig Max Daily Dose Days Date Category No Known Medications Prior To Admisstion (Info) Each 1 Each 06/21/21 Reported Impression . 1. Abnormal CT chest with a large mass 4.9 x 4.8 cm in size in the right lower lobe in the perihilar area. It is somewhat centrally located. No significant pathological adenopathy. This is highly suspected for bronchogenic cancer.. Status post biopsy of the right lower lobe mass. 2. No evidence of DVT. 3. Underlying obesity. 4. Thirty years of tobaccoism, likely underlying chronic obstructive pulmonary disease. 5. Nonspecific pains in the knees back and neck. 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 No obvious metastasis. 6. Tiny pneumothorax post biopsy. On follow-up chest x-ray today no significant pneumothorax observed Plan . RECOMMENDATIONS: 1. Status post lung biopsy. Awaiting results. 2. Once the biopsy has confirmed malignancy, then she would need a staging workup, which can be done as an outpatient. She would require a PET scan to assess her for possibility of surgical resection. 3. PFTs as an outpatient. 4. Replace potassium. 5. I discussed with the patient that it is very important that we should have a PET scan for staging work-up. Unfortunately she does not have resources. She will apply for Medicaid once cancer is confirmed. I will get social security specialist help regarding her ability to get the PET scan. 6. Patient could be discharged from a pulmonary standpoint. And we can inform her about the results of the biopsy. addend: d/w path. bx positive for cancer, special stains P . Pt to get PET as OP once medicaid approved and f/u with me .will need PFT YUKI NEIL MD Jun 23, 2021 09:39
--- NOTE | 2021-06-23 10:28 | RAD ---
XR CHEST 1V History: Reason: ptx post bx / Spl. Instructions: / History: Comparison: June 22, 2021 Findings: Decreased tiny right pneumothorax. Right basilar pulmonary mass, unchanged. No pleural effusion. Unch anged heart size. Impression: 1. Decreased tiny right apical pneumothorax. Electronically signed by: Chago Garza DO (06/23/2021 10:25 AM) [id number]
--- NOTE | 2021-06-23 11:58 | PDOC ---
[employer] PROGRESS NOTE Date of Service DOS: DATE: 06/23/21 TIME: 11:55 Chief Complaint Chief Complaint Probable new lung cancer History of Present Illness History of Present Illness 06/23/2019 Patient seen and examined Discussed with RN Discussed with case management Chart reviewed She is going for CT-guided biopsy soon 06/23/2021: Patient evaluated at bedside. Breathing room oxygen, however I will order a 6-minute walk to see oxygen on exertion. Medassist to come talk with patient and about emergency Medicaid. She complains of swelling in her legs and what sounds like sciatica pain. I was informed by patient's nurse and community mental health social worker that we will biopsy came back positive for cancer. After she has conversation with the community mental health social worker about obtaining Medicaid, plan is to discharge patient home with family care. Greater than 30 minutes spent in the management of this patient's discharge. Vitals/I&O Vitals/I&O: Vital Signs Date Time Temp Pulse Resp B/P (MAP) Pulse Ox O2 Delivery O2 Flow Rate FiO2 06/23/21 10:09 94 Room Air 2.0 06/23/21 07:00 98.0 87 18 135/64 (87) 98.0 I & O 06/22/21 06/22/21 06/23/21 15:00 23:00 07:00 Intake Total 0 ml 1040 ml 320 ml Balance 0 ml 1040 ml 320 ml Physical Exam General: Alert, Oriented X3 Heart: Regular rate Lungs: Clear Abdomen: Normal bowel sounds Extremities: No clubbing Skin: No rashes Assessment and Plan Assessmemt and Plan Problems Medical Problems: (1) Right lower lobe lung mass Status: Acute Comment Review of Relevant I have reviewed the following items cliff (where applicable) has been applied. Medications: Current Medications Medications (Trade) Dose Ordered Sig/Vivien Route PRN Reason Start Time Stop Time Status Last Admin Dose Admin Potassium Chloride (Klor-Con) 40 meq 1X ONCE PO 06/22/21 14:45 06/22/21 14:46 DC 06/22/21 14:54 Justifications for Admission Other Justification BERNABE ARAUJO MD Jun 23, 2021 11:58
--- NOTE | 2021-06-23 12:03 | PDOC3 ---
Discharge Summary Visit Information Date of Admission: Jun 21, 2021 Date of Discharge: Jun 23, 2021 Final Diagnosis Problems Medical Problems: (1) Right lower lobe lung mass Status: Acute Brief Hospital Course Allergies Allergies Coded Allergies Type Severity Reaction Last Updated Verified tramadol Allergy Severe 06/21/21 Yes morphine Adverse Reaction Mild 06/22/21 Yes Vital Signs Vital Signs Date Time Temp Pulse Resp B/P (MAP) Pulse Ox O2 Delivery O2 Flow Rate FiO2 06/23/21 11:00 97.8 17 95 Room Air 97.8 06/23/21 10:09 2.0 06/23/21 07:00 87 135/64 (87) Lab Results Laboratory Tests Test 06/22/21 04:50 06/22/21 09:25 06/22/21 09:40 White Blood Count 8.2 x10^3/uL (4.0-11.0) Red Blood Count 3.78 x10^6/uL (3.50-5.40) Hemoglobin 10.5 g/dL (12.0-15.5) Hematocrit 32.7 % (36.0-47.0) Mean Corpuscular Volume 87 fL (79-100) Mean Corpuscular Hemoglobin 28 pg (25-35) Mean Corpuscular Hemoglobin Concent 32 g/dL (31-37) Red Cell Distribution Width 16.3 % (11.5-14.5) Platelet Count 389 x10^3/uL (140-400) Neutrophils (%) (Auto) 79 % (31-73) Lymphocytes (%) (Auto) 9 % (24-48) Monocytes (%) (Auto) 9 % (0-9) Eosinophils (%) (Auto) 2 % (0-3) Basophils (%) (Auto) 0 % (0-3) Neutrophils # (Auto) 6.5 x10^3/uL (1.8-7.7) Lymphocytes # (Auto) 0.8 x10^3/uL (1.0-4.8) Monocytes # (Auto) 0.7 x10^3/uL (0.0-1.1) Eosinophils # (Auto) 0.2 x10^3/uL (0.0-0.7) Basophils # (Auto) 0.0 x10^3/uL (0.0-0.2) Sodium Level 136 mmol/L (136-145) Potassium Level 3.3 mmol/L (3.5-5.1) Chloride Level 96 mmol/L (98-107) Carbon Dioxide Level 31 mmol/L (21-32) Anion Gap 9 (6-14) Blood Urea Nitrogen 12 mg/dL (7-20) Creatinine 0.8 mg/dL (0.6-1.0) Estimated GFR (Cockcroft-Gault) 78.3 Glucose Level 104 mg/dL (70-99) Calcium Level 8.4 mg/dL (8.5-10.1) SARS-CoV-2 Antigen (Rapid) Negative (NEGATIVE) Prothrombin Time 13.6 SEC (11.7-14.0) Prothromb Time International Ratio 1.0 (0.8-1.1) Brief Hospital Course Ms. Miller is a 45 old female who presented with shortness of breath and new right lung mass. This was initially seen on x-ray, but CT chest showed solid mass with lobulated margins at the perihilar right lower lobe measuring up to 4.8 x 4.9 x 3.1 cm. Consult was placed to pulmonology. She had CT-guided right lung mass biopsy looking positive for lung cancer. Patient did not have insurance but foster care social worker provide her with information about obtaining Medicaid, and she will follow up with Dr. Krishnan, pulmonology services. Discharge Information Condition at Discharge: Stable Disposition/Orders: D/C to Home Scheduled Info (No Known Medications Prior To Admisstion) Each, 1 EACH for , (Reported) Entered as Reported by: JOHN LESTER on 06/21/211930 Last Action: New Order on 06/21/211930 by JOHN LESTER Justicifation of Admission Dx: Justifications for Admission: Justification of Admission Dx: N/A BERNABE ARAUJO MD Jun 23, 2021 12:03
[2021-06-23] MEDS ORDERED: HYDR-2767 PO (12:08)
--- NOTE | 2021-06-23 12:52 | NUR ---
SS following up with discharge planning. SS reviewed pt chart and discussed with pt RN. Pt is currently on room air. COVID19 negative. Pt had lung biopsy yesterday. Cancer confirmed. PT/OT recommended home. Self pay. [facility] following. Jyoti from [facility] meeting with pt and spouse in room to discuss Medicaid and Disability. Discharge order on the chart for home with self care.
--- NOTE | 2021-06-23 14:47 | NUR ---
Discharge Note: SIVA GUILLAUME [address] Discharge instructions and discharge home medications reviewed with Patient and a copy given. All questions have been answered and understanding verbalized. The following instructions and handouts were given: follow up instructions, medication education Discontinued lines and drains: 20 gauge left AC, tip intact. patient tolerated well. Patient discharged to home with self care via .
--- NOTE | 2021-06-24 18:12 | PATHOLOGY ---
[facility] Accession Number: [id number] . 01 Material submitted: . lung - RIGHT LUNG MASS CORE. Modifiers: right . 01 Frozen section diagnosis: . . /MBR . 02 Diagnosis: Lung tissue, right lung mass needle biopsies: - ADENOCARCINOMA, MODERATELY DIFFERENTIATED. SEE COMMENT. (JPM:rosalino; 06/24/2021) QMS 06/24/2021 1106 Local . 02 Comment: Sections of the right lung mass CT guided needle biopsy show extensive replacement of lung tissue by a malignant epithelial neoplasm. The tumor cells have an acinar and nested appearance. The nests of tumor cells frequently show peripheral nuclear palisading and secondary acinar formation within the nest. The tumor cells have ample amounts of eosinophilic cytoplasm, and possess rounded to ovoid, mild to moderately pleomorphic hyperchromatic nuclei containing variably prominent nucleoli. The tumor is associated with an inflamed reactive fibroblastic stroma. A properly controlled panel of immunoperoxidase stains is obtained on A1 and yields the following results: . Cytokeratin 7: Tumor cells positive TTF-1: Tumor cells positive Napsin A: Tumor cells positive Synaptophysin: Tumor cells focally positive CD56: Tumor cells negative Ki-67: Tumor cells show proliferation index of 20-30%. . The morphologic and immunophenotypic findings are supportive of the diagnosis of a moderately differentiated pulmonary acinar adenocarcinoma. The case is also examined by Dr. Mahmood, who concurs with the diagnosis. The results are reported to Dr. Krishnan on 06/24/2021 at 3:39 PM. (JPM:rosalino; 06/24/2021) . Special stains performed: Immunoperoxidase stains for CK7, TTF-1, napsin A, CD56, synaptophysin, Ki-67 on A1 . 02 Electronically signed: . Reid Wright MD, Pathologist NPI- [id number] . 01 Gross description: . The specimen is received in formalin, labeled "Miller, Devi, right lung BX". Received are multiple fragments of pale georges needle core tissue measuring 0.6 x 0.4 x 0.1 cm in aggregate dimensions. The specimen is filtered and submitted entirely in A1. ([facility]; 06/22/2021) NRI/NRI 06/22/2021 1528 Local . 02 Pathologist provided ICD-10: C34.91 . 02 CPT . 857159, Z55202, S12408, 841008 Specimen Comment: A courtesy copy of this report has been sent to [phone] Specimen Comment: Report sent to Specimen Comment: A duplicate report has been generated due to demographic updates. Performed at: 01 [facility] [address] [id number] MD To Morel MD Phone: [phone] Performed at: 02 [facility] [address], [place] [id number] MD Reid Wright MD Phone: [phone]
== END 2021-06-23 14:00 | disposition home or self-care (01) | DRG 182 ==
LOC: ER 03:23 → ED HOLD 09:23 → 6 SOUTH 09:32
PROVIDERS: ADMIT Internal Medicine; ATTEND Internal Medicine
PROC: 0BBF3ZX Excision of Right Lower Lung Lobe, Percutaneous Approach, Diagnostic (ICD-10-PCS; principal; 2021-06-22)
DX: C34.90 Malignant neoplasm of unspecified part of unspecified bronchus or lung (principal); E87.6 Hypokalemia; E66.01 Morbid (severe) obesity due to excess calories; F17.210 Nicotine dependence, cigarettes, uncomplicated; I10 Essential (primary) hypertension; J44.9 Chronic obstructive pulmonary disease, unspecified; Z68.38 Body mass index [BMI] 38.0-38.9, adult; Z82.49 Family history of ischemic heart disease and other diseases of the circulatory system; Z83.3 Family history of diabetes mellitus; F41.9 Anxiety disorder, unspecified; G89.29 Other chronic pain; Z88.8 Allergy status to other drugs, medicaments and biological substances; Z20.822 Contact with and (suspected) exposure to COVID-19
CPT/HCPCS: 32408; 36415; 71045; 71260; 72131; 80048; 80053; 81001; 81025; 83605; 83690; 83735; 83880; 84100; 84443; 84484; 85025; 85379; 85610; 87075; 87086; 87102; 87426; 88305; 88341; 88342; 88360; 93005; 93970; 94618; 96374; 96375; 99152; 99153; 99406; J2250; J2270; J2405; J3010; J3490; Q9967; 97116-GP; 97530-GO; 99285-25; G0378

== ENCOUNTER 2021-07-04 06:04 | Emergency (ER) | payer SELFPAY ==
[~2021-07-04] VITALS: Ht 149.9 cm; Wt 90.9 kg
[~2021-07-04 06:04] MED LIST changes: +HYDR-2767 PO
--- NOTE | 2021-07-04 07:25 | ED.ADGEN ---
Past Medical History Past Medical History: Anxiety, Bronchitis, Hypertension, Seizure, Other Additional Past Medical Histor: chronic back pain from fracture, chronic dental issues, morbid obesity, Past Surgical History: No Surgical History Smoking Status: Current Every Day Smoker Alcohol Use: Heavy Drug Use: None General Adult EDM: Chief Complaint: SHORTNESS OF BREATH HPI: HPI: Patient is a 45 year old female coming in for 2 to 3 days of shortness of breath. Patient also has a cough productive of yellow to green phlegm. States initially stuff is clear. Also had nasal congestion. Denies any fever or chills. Patient states the shortness of breath is worse with exertion. Patient was recently hospitalized and diagnosed with a right lower lung adenocarcinoma. Patient is still a daily smoker. Has not had cold or influenza vaccines. No GI complaints. Review of Systems: Review of Systems: All other systems within normal limits except for as noted in the HPI Current Medications: Current Medications Medications (Trade) Dose Ordered Sig/Vivien Start Time Stop Time Status Last Admin Dose Admin Albuterol/ Ipratropium (Duoneb) 3 ml 1X ONCE 07/04/21 08:30 07/04/21 08:31 DC 07/04/21 08:33 3 ML Ceftriaxone Sodium (Rocephin) 1 gm 1X ONCE 07/04/21 11:45 07/04/21 11:46 UNV Diphenhydramine HCl (Benadryl) 25 mg 1X ONCE 07/04/21 10:00 07/04/21 10:01 DC 07/04/21 09:30 25 MG Info (CONTRAST GIVEN -- Rx MONITORING) 1 each PRN DAILY PRN 07/04/21 09:00 07/06/21 08:59 Iohexol (Omnipaque 350 Mg/ml) 100 ml 1X ONCE 07/04/21 09:00 07/04/21 09:01 DC 07/04/21 10:50 100 ML Methylprednisolone Sodium Succinate (SOLU-Medrol 125MG VIAL) 125 mg 1X ONCE 07/04/21 09:15 07/04/21 09:16 DC 07/04/21 09:12 125 MG Allergies: Allergies: Allergies Coded Allergies Type Severity Reaction Last Updated Verified tramadol Allergy Severe 06/21/21 Yes Physical Exam: PE: Constitutional: Well developed, well nourished, no acute distress, non-toxic appearance. [] HENT: Normocephalic, atraumatic, bilateral external ears normal, nose normal. [] Eyes: PERRLA, conjunctiva normal, no discharge. [] Neck: No rigidity, supple, no stridor. [] Cardiovascular: Regular rate and rhythm, brisk cap refill [] Lungs & Thorax: Non labored symmetric respirations, no tachypnea or respiratory distress [] Abdomen: Soft, nondistended. Skin: Warm, dry, no erythema, no rash. [] Back: Unremarkable Extremities: No deformities, range of motion grossly intact, no lower extremity edema [] Neurologic: Alert and oriented X 3, no focal deficits noted. [] Psychologic: Affect normal, judgement normal, mood normal. [] Current Patient Data: Labs: Laboratory Tests Test 07/04/21 06:35 07/04/21 07:30 07/04/21 07:57 07/04/21 08:26 White Blood Count 4.8 x10^3/uL (4.0-11.0) Red Blood Count 3.23 x10^6/uL (3.50-5.40) L Hemoglobin 8.8 g/dL (12.0-15.5) L Hematocrit 27.8 % (36.0-47.0) L Mean Corpuscular Volume 86 fL (79-100) Mean Corpuscular Hemoglobin 27 pg (25-35) Mean Corpuscular Hemoglobin Concent 32 g/dL (31-37) Red Cell Distribution Width 16.5 % (11.5-14.5) H Platelet Count 395 x10^3/uL (140-400) Neutrophils (%) (Auto) 77 % (31-73) H Lymphocytes (%) (Auto) 9 % (24-48) L Monocytes (%) (Auto) 9 % (0-9) Eosinophils (%) (Auto) 4 % (0-3) H Basophils (%) (Auto) 1 % (0-3) Neutrophils # (Auto) 3.7 x10^3/uL (1.8-7.7) Lymphocytes # (Auto) 0.4 x10^3/uL (1.0-4.8) L Monocytes # (Auto) 0.4 x10^3/uL (0.0-1.1) Eosinophils # (Auto) 0.2 x10^3/uL (0.0-0.7) Basophils # (Auto) 0.0 x10^3/uL (0.0-0.2) D-Dimer (Gavi) 0.81 ug/mlFEU (0.00-0.50) H Sodium Level 142 mmol/L (136-145) Potassium Level 4.4 mmol/L (3.5-5.1) Chloride Level 104 mmol/L (98-107) Carbon Dioxide Level 27 mmol/L (21-32) Anion Gap 11 (6-14) Blood Urea Nitrogen 13 mg/dL (7-20) Creatinine 0.7 mg/dL (0.6-1.0) Estimated GFR (Cockcroft-Gault) 91.3 BUN/Creatinine Ratio 19 (6-20) Glucose Level 111 mg/dL (70-99) H Calcium Level 8.4 mg/dL (8.5-10.1) L Total Bilirubin 0.1 mg/dL (0.2-1.0) L Aspartate Amino Transferase (AST) 27 U/L (15-37) Alanine Aminotransferase (ALT) 40 U/L (14-59) Alkaline Phosphatase 415 U/L (46-116) H LJ-Hdz-J-Type Natriuretic Peptide 119 pg/mL (0-124) Total Protein 6.9 g/dL (6.4-8.2) Albumin 3.6 g/dL (3.4-5.0) Albumin/Globulin Ratio 1.1 (1.0-1.7) Influenza Type A Antigen Negative (NEGATIVE) Influenza Type B Antigen Negative (NEGATIVE) SARS-CoV-2 Antigen (Rapid) Negative (NEGATIVE) Troponin I High Sensitivity 8 ng/L (4-50) Urine Collection Type Unknown Urine Color (Auto) Light yellow Urine Turbidity Clear Urine pH (Auto) 7.0 (<5.0-8.0) Urine Specific [place] 1.017 (1.000-1.030) Urine Protein (Auto) Negative mg/dL (Negative) Urine Glucose (Auto)(UA) Negative mg/dL (Negative) Urine Ketones (Auto) Negative mg/dL (Negative) Urine Blood (Auto) Negative (Negative) Urine Nitrite Negative (Negative) Urine Bilirubin (Auto) Negative (Negative) Urine Urobilinogen (Auto) Normal mg/dL (Normal) Urine Leukocyte Esterase (Auto) Negative (Negative) Urine RBC 0 /HPF (0-2) Urine WBC Occ /HPF (0-4) Urine Squamous Epithelial Cells Many /LPF Urine Bacteria Few /HPF (0-FEW) Urine Mucus Slight /LPF Test 07/04/21 08:30 POC Urine HCG, Qualitative Hcg negative (Negative) Laboratory Tests 07/04/21 06:35 Laboratory Tests 07/04/21 06:35 Vital Signs: Vital Signs Date Time Temp Pulse Resp B/P (MAP) Pulse Ox O2 Delivery O2 Flow Rate FiO2 07/04/21 08:55 96 21 173/79 (110) 98 Room Air 07/04/21 08:33 2.0 07/04/21 06:38 98.8 98.8 EKG: EKG: Sinus rhythm, heart rate 80 bpm, normal axis, no STEMI[] Heart Score: C/O Chest Pain: No HEART Score for Chest Pain: HEART Score for Chest Pain Response (Comments) Value ECG Nonspecific Repolarizatio 1 Age < 45 0 Risk Factors 1 or 2 Risk Factors 1 Troponin < Normal Limit 0 Total 2 Risk Factors: Risk Factors: DM, Current or recent (<one month) smoker, HTN, HLP, family history of CAD, obesity. Risk Scores: Score 0 - 3: 2.5% MACE over next 6 weeks - Discharge Home Score 4 - 6: 20.3% MACE over next 6 weeks - Admit for Clinical Observation Score 7 - 10: 72.7% MACE over next 6 weeks - Early Invasive Strategies Radiology/Procedures: Radiology/Procedures: [][facility] [address] [place] [address] IMAGING REPORT Signed PATIENT: SIVA GUILLAUME ACCOUNT: [id number] : 1975 LOCATION: ER AGE: 45 SEX: F EXAM STATUS: PRE ER ORD. PHYSICIAN: COLEMAN BRITO MD REASON: hypoxia PROCEDURE: CHEST AP ONLY Single view chest dated 07/04/2021 7:34 AM: COMPARISON: 06/23/2021 Clinical Indication: Hypoxia status post lung biopsy.. Findings: Single upright portable exam of the chest was performed. Heart and mediastinal contours are stable. There is a rounded mass lesion at the infrahilar region on the right, unchanged. Mild patchy and linear opacities at the left lung base and left suprahilar region, new from prior study. No pleural effusion. Previously described right apical pneumothorax is not clearly visualized. IMPRESSION: 1. Mild patchy airspace disease in the left upper lobe and left lower lobe, new from prior study, atelectasis versus early pneumonia. 2. Right lower lobe lung mass, unchanged. Previously described right-sided pneumothorax is no longer apparent. Electronically signed by: Jamie Dennis MD (07/04/2021 7:37 AM) [id number] DICTATED and SIGNED BY: JAMIE DENNIS MD DATE: 07/04/21 0734 [facility] [address] [place] [address] IMAGING REPORT Signed PATIENT: SIVA GUILLAUME ACCOUNT: [id number] : 1975 LOCATION: ER AGE: 45 SEX: F EXAM STATUS: REG ER ORD. PHYSICIAN: COLEMAN BRITO MD REASON: hypoxia, elevated dimer PROCEDURE: CT ANGIOGRAPHY CHEST CT angiogram of the chest with contrast: Reason for examination: Hypoxia. Elevated d-dimer. Comparison is made to previous study dated 06/21/2021. Helical images were obtained through the chest with intravenous administration of 100 cc Omnipaque 350 using PE protocol. 3-D MIPS reconstruction was performed in sagittal and coronal planes. Exposure: One or more of the following individualized dose reduction techniques were utilized for this examination: 1. Automated exposure control 2. Adjustment of the mA and/or kV according to patient size 3. Use of iterative reconstruction technique. No abnormality seen at the thyroid gland. The trachea and mainstem bronchi show no intraluminal lesion. No abnormality seen at the esophagus. The thoracic aorta shows no aneurysmal dilatation or dissection. The heart size is normal with no pericardial effusion. There is no evidence of pulmonary embolus. The lung penaloza continue to show a soft tissue mass in the right perihilar lower lobe measuring 4.8 x 4.5 x 4.1 cm in greatest AP, transverse and craniocaudal dimensions. There also appear to be small nodules present peripherally in the right middle lobe measuring approximately 6.6 mm in size on the pleural surface and in the lingula measuring 4.2 mm in size. There does appear to be a new small left pleural effusion. No abnormalities are seen at the liver, spleen, adrenal glands or pancreas. No acute bony abnormalities are seen. There are however some hypertrophic changes in thoracic spine. IMPRESSION: No evidence of pulmonary embolus. Continued presence of a 4.8 x 4.5 x 4.1 mm perihilar mass in the right lower lobe. Additional small nodules in the right middle lobe measuring 6.6 mm in size and in the left lingula measuring 4.2 mm in size. Small new left pleural effusion. Electronically signed by: Addison Andrea MD (07/04/2021 11:28 AM) [facility] DICTATED and SIGNED BY: ADDISON ANDREA MD DATE: 07/04/211102 Course & Med Decision Making: Course & Med Decision Making Pertinent Labs and Imaging studies reviewed. (See chart for details) [] Dragon Disclaimer: Dragon Disclaimer: This electronic medical record was generated, in whole or in part, using a voice recognition dictation system. Departure Departure Impression: Primary Impression: Left lower lobe pneumonia Additional Impression: Left upper lobe pneumonia Disposition: HOME / SELF CARE / HOMELESS Referrals: NO PCP (PCP) Patient Instructions: Pneumomediastinum Additional Instructions: Obtain a pulse oximeter and check your oxygen when you are feeling short of breath. Return to the emergency department if oxygen saturation is staying less than 88% for 5 minutes despite taking deep breaths. Scripts Prednisone (PREDNISONE) 50 Mg Tablet 1 TAB PO DAILY for steroid for 5 Days, #5 TAB Prov: COLEMAN BRITO MD 07/04/21 Amoxicillin/Potassium Clav (AMOX TR-K CLV 875-125 MG TAB) 1 Each Tablet 1 TAB PO BID for antibiotic for 5 Days, #10 TAB Prov: COLEMAN BRITO MD 07/04/21 Albuterol Sulfate (PROAIR HFA INHALER) 8.5 Gm Hfa.aer.ad 2 PUFF IH PRN Q4-6HRS PRN for wheezing for 21 Days, #1 INHALER 0 Refills Prov: COLEMAN BRITO MD 07/04/21 Problem Qualifiers COLEMAN BRITO MD Jul 04, 2021 07:25
[2021-07-04 07:34] LABS: BASO % 1 % (0-3); EOS # 0.2 x10^3/uL (0.0-0.7); EOS % 4 % (0-3); HEMATOCRIT 27.8 % (36.0-47.0); HEMOGLOBIN 8.8 g/dL (12.0-15.5); LYMPH # 0.4 x10^3/uL (1.0-4.8); LYMPH % 9 % (24-48); MEAN CORPUSCULAR HEMOGLOBIN 27 pg (25-35); MEAN CORPUSCULAR HGB CONC 32 g/dL (31-37); MEAN CORPUSCULAR VOLUME 86 fL (79-100); MONO # 0.4 x10^3/uL (0.0-1.1); MONO % 9 % (0-9); NEUT # 3.7 x10^3/uL (1.8-7.7); NEUT % 77 % (31-73); PLATELET COUNT 395 x10^3/uL (140-400); RED BLOOD COUNT 3.23 x10^6/uL (3.50-5.40); RED CELL DISTRIBUTION WIDTH 16.5 % (11.5-14.5); WHITE BLOOD COUNT 4.8 x10^3/uL (4.0-11.0)
--- NOTE | 2021-07-04 07:40 | RAD ---
Single view chest dated 07/04/2021 7:34 AM: COMPARISON: 06/23/2021 Clinical Indication: Hypoxia status post lung biopsy.. Findings: Single upright portable exam of the chest was performed. Heart and mediastinal contours are stable. T here is a rounded mass lesion at the infrahilar region on the right, unchanged. Mild patchy and linea r opacities at the left lung base and left suprahilar region, new from prior study. No pleural effusi on. Previously described right apical pneumothorax is not clearly visualized. IMPRESSION: 1. Mild patchy airspace disease in the left upper lobe and left lower lobe, new from prior study, ate lectasis versus early pneumonia. 2. Right lower lobe lung mass, unchanged. Previously described right-sided pneumothorax is no longer apparent. Electronically signed by: Jamie Dennis MD (07/04/2021 7:37 AM) [id number]
[2021-07-04 07:44] LABS: CALCIUM 8.4 mg/dL (8.5-10.1); CREATININE 0.7 mg/dL (0.6-1.0); GFR 91.3; POTASSIUM 4.4 mmol/L (3.5-5.1)
[2021-07-04 07:49] LABS: ALBUMIN 3.6 g/dL (3.4-5.0); ALBUMIN/GLOBULIN RATIO 1.1 (1.0-1.7); TOTAL BILIRUBIN 0.1 mg/dL (0.2-1.0); TOTAL PROTEIN 6.9 g/dL (6.4-8.2)
[2021-07-04 07:57] LABS: INFLUENZA A PATIENT NEGATIVE (NEGATIVE); INFLUENZA B PATIENT NEGATIVE (NEGATIVE)
[2021-07-04] MEDS: IPRATRPIUM/ALBUTEROL 0.5/2.5MG 3 ML NEBU. NEB ONE ×2 (08:05→08:33)
[2021-07-04] MEDS ORDERED: CONTRAST GIVEN. MC PRN (09:00)
[2021-07-04] MEDS: methylPREDNISolone SOD SUCC PF 125 MG/2 ML VIAL. IV ONE (09:12)
[2021-07-04 09:20] LABS: BACTERIA,URINE FEW /HPF (0-FEW); RBC,URINE 0 /HPF (0-2); WBC,URINE OCC /HPF (0-4)
[2021-07-04] MEDS: diphenhydrAMINE 50 MG/ML VIAL IVP ONE (09:30)
[2021-07-04] MEDS: IOHEXOL 350 MG/ML 100 ML VIAL. IV ONE (10:50)
--- NOTE | 2021-07-04 11:30 | RAD ---
CT angiogram of the chest with contrast: Reason for examination: Hypoxia. Elevated d-dimer. Comparison is made to previous study dated 06/21/2021. Helical images were obtained through the chest with intravenous administration of 100 cc Omnipaque 35 0 using PE protocol. 3-D MIPS reconstruction was performed in sagittal and coronal planes. Exposure: One or more of the following individualized dose reduction techniques were utilized for thi s examination: 1. Automated exposure control 2. Adjustment of the mA and/or kV according to patient size 3. Use of iterative reconstruction technique. No abnormality seen at the thyroid gland. The trachea and mainstem bronchi show no intraluminal lesio n. No abnormality seen at the esophagus. The thoracic aorta shows no aneurysmal dilatation or dissection. The heart size is normal with no per icardial effusion. There is no evidence of pulmonary embolus. The lung penaloza continue to show a soft tissue mass in the right perihilar lower lobe measuring 4.8 x 4.5 x 4.1 cm in greatest AP, transverse and craniocaudal dimensions. There also appear to be small n odules present peripherally in the right middle lobe measuring approximately 6.6 mm in size on the pl eural surface and in the lingula measuring 4.2 mm in size. There does appear to be a new small left p leural effusion. No abnormalities are seen at the liver, spleen, adrenal glands or pancreas. No acute bony abnormalities are seen. There are however some hypertrophic changes in thoracic spine. IMPRESSION: No evidence of pulmonary embolus. Continued presence of a 4.8 x 4.5 x 4.1 mm perihilar mass in the right lower lobe. Additional small nodules in the right middle lobe measuring 6.6 mm in size and in the left lingula me asuring 4.2 mm in size. Small new left pleural effusion. Electronically signed by: Ai Gilman MD (07/04/2021 11:28 AM) [facility]
[2021-07-04] MEDS ORDERED: AMOX1TAB11 PO (11:47)
[2021-07-04] MEDS ORDERED: ALBU2.5V8 IH (11:47)
[2021-07-04] MEDS ORDERED: PRED50TA PO (11:47)
[2021-07-04] MEDS: cefTRIAXone IV Push 1 GM VIAL. IVP ONE (12:32)
[2021-07-04 12:57] VITALS: BP 196/95
--- NOTE | 2021-07-05 04:51 | EKG ---
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
== END 2021-07-04 13:00 | disposition home or self-care (01) ==
LOC: ER 06:04
DX: J18.9 Pneumonia, unspecified organism (principal); Z20.822 Contact with and (suspected) exposure to COVID-19; I10 Essential (primary) hypertension; G89.29 Other chronic pain; F17.200 Nicotine dependence, unspecified, uncomplicated; E66.01 Morbid (severe) obesity due to excess calories; Z68.41 Body mass index [BMI] 40.0-44.9, adult; Z88.6 Allergy status to analgesic agent
CPT/HCPCS: 71045; 71275; 80053; 81001; 81025; 83880; 84484; 85025; 85379; 87428; 93005; 94640; 96374; 96375; 99285; C9803; J0696; J1200; J2930; Q9967; U0003